=== PATIENT | male | born 1950 | race Caucasian/White ===

== ENCOUNTER 2022-01-13 16:00 | Inpatient (IN) ==
--- NOTE | 2022-01-13 16:14 | ED Triage Note ---
Date of Service January 13, 2022 History of Present Illness This patient was briefly evaluated while in triage. An abbreviated physical exam was performed. This patient is a 71-year-old Male with past medical history of dyspnea on exertion, dyslipidemia, HTN, cardiomyopathy who presents to the ED for key luation of Left foot wound. Pt. states "I had a sore on it. It started out as a blister. It broke and got all puffy and red and there's pus coming out. It's just leaking all over the place." Generalized fatigue and SOB. Does follow with podiatry. Was at [facility] today and referred to ED. Physical Exam VITALS: Vitals are noted on the nurse's note and reviewed by myself. GENERAL: This is a 71 year old white male, in no acute distress, nondiaphoretic, well-developed well-nourished. SKIN: No obvious rashes. Erythema radiating up LLE to proximal godfrey. HEAD: Normocephalic atraumatic. EYES: Conjunctivae without injection, sclerae without icterus. NECK: No JVD. LUNGS: No retractions or accessory muscle use. MUSCULOSKELETAL: Pt. presents in a wheelchair. Left foot in post-op shoe. NEURO: Patient was alert and oriented to person place and time. No focal neurological deficits. Initial orders for labs and / or imaging were placed and patient was placed in the waiting area until a bed is available. Please see further documentation for the full ED course. MDM / Impression Impression Impression: Type 2 diabetes mellitus with left diabetic foot infection, Hypertension, Acute renal insufficiency
--- NOTE | 2022-01-13 17:14 | XRay Report ---
XR chest 1V portable CLINICAL HISTORY: Sob TECHNIQUE: Single frontal radiograph of the chest was obtained. Comparison: Comparison is made to chest radiograph 12/27/2020 FINDINGS: Median sternotomy wires are unchanged. Dual-lead pacemaker is seen. Cardiomegaly is noted. Prominence and cephalization of the vasculature is seen. No evidence of pleural effusion or pneumothorax. IMPRESSION: Mild pulmonary edema. ACT 112: Negative or not required by law. Electronically signed by: Justice Weir M.D. 01/13/2022 5:13 PM
[2022-01-13] MEDS ORDERED: PIPERACILLIN/TAZOBACTAM 4.5 GM/120 ML BAG IV ONE (17:49)
--- NOTE | 2022-01-13 18:16 | Emergency Department Note ---
Impression & Plan Type 2 diabetes mellitus with left diabetic foot infection, Hypertension, Acute renal insufficiency ED Provider Note Provider: Iftikhar Esteban MD DATE OF SERVICE: 01/13/2022 CHIEF COMPLAINT: left foot infection HISTORY OF PRESENT ILLNESS: Patient is a 71-year-old gentleman with a history of gout, diabetes, hypertension, and CAD presenting here today [facility] who [facility] his primary care doctor. Evidently according to him and his for the last 3 weeks he has had a wound on his left foot just above his left big toe. States it started as a bit of irritation and a blister that then popped and pus has been oozing from it. There is been increasing redness of the foot and lower leg. Patient states has had some chills and fevers at times with feeling more fatigued. Patient denies a history of diabetic foot infections. Has not been on antibiotics. Has been trying to wash it some. finally convinced him to seek medical care today and again the outpatient doctors office referred him here for it. REVIEW OF SYSTEMS: A total of 10 review of systems was obtained and negative except as stated above in the HPI. PAST MEDICAL HISTORY: As noted above MEDICATIONS: Reviewed home medications SOCIAL HISTORY: Does not smoke currently, lives at home with PHYSICAL EXAM: GENERAL: alert and oriented in no acute distress on stretcher Head: normocephalic and atraumatic EYES: No injection, discharge or icterus. NECK: Trachea midline. ENT: Mucous membranes pink and moist. LUNGS: Airway patent. No retractions. Breath sounds clear with good air entry bilaterally. HEART: Regular rate and rhythm. No chest wall tenderness ABDOMEN: Soft and non-tender, without guarding or rebound. SKIN: Acyanotic, warm, dry except as noted below EXTREMITIES: Without swelling, tenderness or deformity except for warmth and some swelling 2+ of the left lower extremity below the knee towards the left foot. There is evidence of approximately centimeter wound with some slight purulence overlying the left great MTP joint. No crepitus. NEUROLOGICAL: No focal deficits. No aphasia. No facial droop or slurred speech. Sensation to gross touch normal. EK bpm sinus rhythm with sinus arrhythmia and occasional PVC. No acute ST segment elevation with diffuse and lateral T wave inversions a QTC of 497. Right bundle branch block is notable. CONTINUOUS CARDIAC MONITORING: was ordered and showed a heart rate of 80s-90s bpm in sinus rhythm with occasional PVCs and sinus arrhythmia Patient's laboratory studies and imaging reviewed. Differential includes Cellulitis, abscess, MRSA infection, DVT, necrotizing fasciitis, dermatitis, drug eruption, allergic reaction, as well as other pathologies. IMPRESSION/MEDICAL DECISION MAKING: Patient diabetic with some blistering and wound of his left foot that he is not seeking care for until today. Not significant tachycardic or febrile here but reports a fever and chills at home. Cleaning the wound of the left foot express more than 5 mL of purulent material, this was sent for culture. Did clean with saline and chlorhexidine. Will cover with broad-spectrum Zosyn at this time. Cultures obtained. Ultrasound actually DVT of the left lower extremity obtained as well as x-ray here. Question if he could be experiencing a deeper bone infection. Does not appear to be having nec fasc at this point. Does not appear septic at this point. Blood work without leukocytosis. ESR and CRP are both elevated. Lactate is not elevated. Creatinine of 1.7 unsure of his exact baseline recently but has in the past been between 1.2 and 1.5. Want to be careful given some possible pulmonary edema findings as chest x-ray about aggressive IV hydration at this point. X-ray questions per radiology report of the left foot gouty versus osteomyelitis picture. US LLE w/o signs of DVT per radiology. The significant infection of the left foor here is concerning for possible occult osteomyelitis. Received Zosyn at this time and in discussion with pharmacy daptomycin ordered for MRSA coverage. Discussed with the hospitalist for further care here at the hospital. DIAGNOSIS: Diabetic left foot infection, renal insufficiency DISPOSITION: Hospitalist will evaluate Patient was agreeable with this plan. Past Med/Surg History Medical History (Updated 01/13/22 @ 19:35 by Iftikhar Esteban M.D.) Aortic stenosis Cardiomyopathy Dyslipidemia Hypertension Type 2 diabetes mellitus Surgical History (Updated 05/29/19 @ 13:58 by Jacinta Huerta) History of ear surgery Transtympanic injections for sudden hearing loss Family History (Updated 05/29/19 @ 13:52 by Jacinta Huerta) Other No family history of adverse response to anesthesia No family history of bleeding disorder Social History (Updated 05/29/19 @ 13:52 by Jacinta Huerta) Smoking Status: Never smoker Second Hand Exposure: No; Hx Alcohol Use: Yes Alcohol type: beer Alcohol Intake Frequency Comment: 2 six-packs per week Hx Substance Use: No Preferred Language: [place]ian Communication Ability: Effective Clinical Science Liaison Required: No Beliefs That Will Affect Care: None Current Living Situation: Spouse current occupational status: retired Feels Safe at Home: Yes Assistive Devices: Denture - Upper, Denture - Lower, Glasses and Hearing Aid - Bilateral Allergies Allergies Allergy/AdvReac Type Severity Reaction Status Date / Time No Known Drug Allergies Allergy Verified 12/27/20 12:10 Home Meds Home Medications Medication Instructions Recorded Confirmed atenolol 25 mg tablet 25 mg PO DAILY 05/29/19 01/02/21 atorvastatin 80 mg tablet 80 mg PO DAILY 05/29/19 01/02/21 glipizide 10 mg tablet 10 mg PO BID 05/29/19 01/02/21 allopurinol 100 mg tablet 100 mg PO DAILY 12/27/20 01/02/21 alogliptin 12.5 mg tablet 12.5 mg PO DAILY 12/27/20 01/02/21 aspirin 81 mg tablet 81 mg PO DAILY 12/27/20 01/02/21 carboxymethylcellulose sodium See Rx Instructions ophthalmic 12/27/20 01/02/21 [Artificial Tears ([facility])] (eye) .COMPLEX cholecalciferol (vitamin D3) 25 25 mcg PO BID 12/27/20 01/02/21 mcg (1,000 unit) tablet metformin 500 mg tablet 1,000 mg PO DAILY 12/27/20 01/02/21 Results & Data (ED) Vital Signs Vital Signs - 24 hr 01/13/22 16:12 01/13/22 19:09 01/13/22 19:12 Temperature 36.8 C Temperature Source Oral Pulse Rate 94 H Pulse Rate [Finger] 76 Respiratory Rate 20 18 Respiratory Effort / Characteristics Non-Labored Spontaneous Respiratory Depth Normal Normal Respiratory Pattern Regular Blood Pressure 128/68 Blood Pressure [Right Arm] 155/96 H Blood Pressure Mean 88 Blood Pressure Mean [Right Arm] 115 Blood Pressure Position Sitting Pulse Oximetry 92 93 93 Oxygen Delivery Method Room Air Room Air Sepsis Recent Fever Within 48 Hours Yes Sepsis New/Unexplained Change in Mental Status No Sepsis Action Taken by Nursing No Action Required Laboratory Data Result diagrams: 01/13/22 17:55 01/13/22 17:55 Lab Results 01/13/22 01/13/2222 Range/Units 17:15 17:55 17:55 WBC 9.24 (4.8-10.8) K/ul RBC 4.00 L (4.63-6.08) M/uL Hgb 11.4 L (14.0-18.0) g/dl Hct 35.8 L (40.1-51.0) % MCV 89.5 (80.0-100.0) fL MCH 28.5 (25.0-34.0) pg MCHC 31.8 L (32.0-36.0) g/dL RDW Std Deviation 45.1 (36.4-46.3) fL RDW Coeff of Daphne 13.8 (11.5-14.5) % Plt Count 182 (130-400) K/uL MPV 10.6 (9.4-12.4) fL Immature Gran % (Auto) 1.0 % Neut % (Auto) 77.3 % Lymph % (Auto) 7.9 % [place] % (Auto) 12.2 % Eos % (Auto) 1.1 % Baso % (Auto) 0.5 % Neut # (Auto) 7.14 H (1.4-6.5) K/uL Lymph # (Auto) 0.73 L (1.2-3.4) K/uL [place] # (Auto) 1.13 H (0.24-0.82) K/uL Eos # (Auto) 0.10 (0-0.50) K/uL Baso # (Auto) 0.05 (0-0.2) K/uL Immature Gran # (Auto) 0.09 H (0.00-0.02) K/uL ESR 81 H (0-20) mm/hr PT (9.0-12.0) Seconds INR (0.9-1.1) APTT (21.0-31.0) Seconds PTT Ratio Sodium (136-145) mmol/L Potassium (3.5-5.1) mmol/L Chloride (98-107) mmol/L Carbon Dioxide (21-32) mmol/L Anion Gap (3-11) BUN (6-23) mg/dl Creatinine (0.6-1.4) mg/dl Est Cr Clr Drug Dosing ml/min Est GFR ( Amer) ml/min Est GFR (Non-Af Amer) ml/min BUN/Creatinine Ratio (10-20) Glucose (70-99(Fasting)) mg/dl Lactate (0.4-2.0) mmol/L Calcium (8.5-10.1) mg/dl Magnesium (1.7-2.4) mg/dl Total Bilirubin (0.2-1.0) mg/dl AST (13-39) U/L ALT (7-52) U/L Alkaline Phosphatase (34-104) U/L Troponin I High Sens (0-20) pg/ml C-Reactive Protein (0-0.5) mg/dl B-Natriuretic Peptide (0-100) pg/ml Total Protein (6.0-8.3) gm/dl Albumin (3.4-5.0) gm/dl Globulin (2.5-4.0) gm/dl Albumin/Globulin Ratio (0.9-2) Procalcitonin (0-0.5) ng/ml SARS-CoV-2 (PCR) NEGATIVE (Negative) 01/13/22 01/13/22 01/13/22 Range/Units 17:55 17:55 17:55 WBC (4.8-10.8) K/ul RBC (4.63-6.08) M/uL Hgb (14.0-18.0) g/dl Hct (40.1-51.0) % MCV (80.0-100.0) fL MCH (25.0-34.0) pg MCHC (32.0-36.0) g/dL RDW Std Deviation (36.4-46.3) fL RDW Coeff of Daphne (11.5-14.5) % Plt Count (130-400) K/uL MPV (9.4-12.4) fL Immature Gran % (Auto) % Neut % (Auto) % Lymph % (Auto) % [place] % (Auto) % Eos % (Auto) % Baso % (Auto) % Neut # (Auto) (1.4-6.5) K/uL Lymph # (Auto) (1.2-3.4) K/uL [place] # (Auto) (0.24-0.82) K/uL Eos # (Auto) (0-0.50) K/uL Baso # (Auto) (0-0.2) K/uL Immature Gran # (Auto) (0.00-0.02) K/uL ESR (0-20) mm/hr PT 11.1 (9.0-12.0) Seconds INR 1.0 (0.9-1.1) APTT 27.1 (21.0-31.0) Seconds PTT Ratio 1.0 Sodium 134 L (136-145) mmol/L Potassium 4.3 (3.5-5.1) mmol/L Chloride 98 (98-107) mmol/L Carbon Dioxide 29 (21-32) mmol/L Anion Gap 7 (3-11) BUN 20 (6-23) mg/dl Creatinine 1.70 H (0.6-1.4) mg/dl Est Cr Clr Drug Dosing 41.9 ml/min Est GFR ( Amer) 45.4 ml/min Est GFR (Non-Af Amer) 39.1 ml/min BUN/Creatinine Ratio 11.8 (10-20) Glucose 74 (70-99(Fasting)) mg/dl Lactate (0.4-2.0) mmol/L Calcium 8.8 (8.5-10.1) mg/dl Magnesium 1.9 (1.7-2.4) mg/dl Total Bilirubin 1.5 H (0.2-1.0) mg/dl AST 29 (13-39) U/L ALT 23 (7-52) U/L Alkaline Phosphatase 309 H (34-104) U/L Troponin I High Sens 29.6 H (0-20) pg/ml C-Reactive Protein 15.96 H (0-0.5) mg/dl B-Natriuretic Peptide (0-100) pg/ml Total Protein 6.8 (6.0-8.3) gm/dl Albumin 3.4 (3.4-5.0) gm/dl Globulin 3.4 (2.5-4.0) gm/dl Albumin/Globulin Ratio 1.0 (0.9-2) Procalcitonin 0.93 H (0-0.5) ng/ml SARS-CoV-2 (PCR) (Negative) 01/13/22 01/13/22 Range/Units 17:55 18:41 WBC (4.8-10.8) K/ul RBC (4.63-6.08) M/uL Hgb (14.0-18.0) g/dl Hct (40.1-51.0) % MCV (80.0-100.0) fL MCH (25.0-34.0) pg MCHC (32.0-36.0) g/dL RDW Std Deviation (36.4-46.3) fL RDW Coeff of Daphne (11.5-14.5) % Plt Count (130-400) K/uL MPV (9.4-12.4) fL Immature Gran % (Auto) % Neut % (Auto) % Lymph % (Auto) % [place] % (Auto) % Eos % (Auto) % Baso % (Auto) % Neut # (Auto) (1.4-6.5) K/uL Lymph # (Auto) (1.2-3.4) K/uL [place] # (Auto) (0.24-0.82) K/uL Eos # (Auto) (0-0.50) K/uL Baso # (Auto) (0-0.2) K/uL Immature Gran # (Auto) (0.00-0.02) K/uL ESR (0-20) mm/hr PT (9.0-12.0) Seconds INR (0.9-1.1) APTT (21.0-31.0) Seconds PTT Ratio Sodium (136-145) mmol/L Potassium (3.5-5.1) mmol/L Chloride (98-107) mmol/L Carbon Dioxide (21-32) mmol/L Anion Gap (3-11) BUN (6-23) mg/dl Creatinine (0.6-1.4) mg/dl Est Cr Clr Drug Dosing ml/min Est GFR ( Amer) ml/min Est GFR (Non-Af Amer) ml/min BUN/Creatinine Ratio (10-20) Glucose (70-99(Fasting)) mg/dl Lactate 0.7 (0.4-2.0) mmol/L Calcium (8.5-10.1) mg/dl Magnesium (1.7-2.4) mg/dl Total Bilirubin (0.2-1.0) mg/dl AST (13-39) U/L ALT (7-52) U/L Alkaline Phosphatase (34-104) U/L Troponin I High Sens (0-20) pg/ml C-Reactive Protein (0-0.5) mg/dl B-Natriuretic Peptide 909 H (0-100) pg/ml Total Protein (6.0-8.3) gm/dl Albumin (3.4-5.0) gm/dl Globulin (2.5-4.0) gm/dl Albumin/Globulin Ratio (0.9-2) Procalcitonin (0-0.5) ng/ml SARS-CoV-2 (PCR) (Negative) Administered Medications Discontinued Medications Piperacillin Sod/Tazobactam Sod (Zosyn) 4.5 gm in 120 mls @ 240 mls/hr IV NOW ONE Stop: 01/13/22 18:18 Last Admin: 01/13/22 19:03 Dose: 240 mls/hr Documented By: Imaging Data Radiologist's Impression: Chest X-Ray 01/13/22 16:14 XR chest 1V portable CLINICAL HISTORY: Sob TECHNIQUE: Single frontal radiograph of the chest was obtained. Comparison: Comparison is made to chest radiograph 12/27/2020 FINDINGS: Median sternotomy wires are unchanged. Dual-lead pacemaker is seen. Cardiomegaly is noted. Prominence and cephalization of the vasculature is seen. No evidence of pleural effusion or pneumothorax. IMPRESSION: Mild pulmonary edema. ACT 112: Negative or not required by law. Electronically signed by: Justice Weir M.D. 01/13/2022 5:13 PM Venous Doppler Study 01/13/22 16:14 LEFT LOWER EXTREMITY VENOUS DOPPLER CLINICAL HISTORY: Pain, redness, swelling COMPARISON STUDY: No previous studies for comparison. TECHNIQUE: Sonography of the deep venous system of the left lower extremity was performed. Compression and augmentation were evaluated. FINDINGS: The left common femoral, superficial femoral and popliteal veins were compressible. Augmentation was normal. Flow was shown within the deep calf vessels. IMPRESSION: No evidence of deep venous thrombus within the left lower extremity. ACT 112: Negative or not required by law. Electronically signed by: Dao Amador M.D. 01/13/2022 7:12 PM Foot X-Ray 01/13/22 17:27 XR foot LT min 3V routine CLINICAL HISTORY: Left foot infection. COMPARISON: None FINDINGS: This exam was technically difficult to obtain. No acute fracture is identified. Note is made of soft tissue swelling along the medial aspect of the left first metatarsophalangeal joint. This may contain small calcific densities. There is possible erosion of the medial aspect of the left first metatarsal head. Tarsometatarsal joints are intact. Posterior and plantar calcaneal spurring are present. There is dorsal subcutaneous edema of the left foot. 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 IMPRESSION: 1. Soft tissue swelling along the medial aspect of the left first metatarsophalangeal joint which may contain small calcific densities. Possible erosion of the medial aspect of the left first metatarsal head. These findings are nonspecific and could reflect gout however an infectious process with osteom yelitis cannot be completely excluded. 2. No acute fracture within the left foot. ACT 112: Negative or not required by law. Electronically signed by: Dao Amador M.D. 01/13/2022 6:46 PM Discharge Plan Visit Data Chief Complaint: Foot Injury/Pain Stated Complaint: DIABETIC, SORE ON FOOT, RED UP TO KNEE ED Provider: Iftikhar Esteban Discharge Problem: Type 2 diabetes mellitus with left diabetic foot infection, Hypertension, Acute renal insufficiency Patient Disposition: Being Evaluated by Hospitalist Forms Stand Alone Forms: [facility] [employer] Prescriptions Prescriptions: No Action atenolol 25 mg tablet 25 mg PO DAILY atorvastatin 80 mg tablet 80 mg PO DAILY glipizide 10 mg tablet 10 mg PO BID metformin 500 mg tablet 1,000 mg PO DAILY cholecalciferol (vitamin D3) 25 mcg (1,000 unit) tablet 25 mcg PO BID aspirin 81 mg tablet 81 mg PO DAILY carboxymethylcellulose sodium [Artificial Tears ([facility])] See Rx Instructions ophthalmic (eye) .COMPLEX Rx Instructions: ophthalmic (eye) 1 drop in both eyes alogliptin 12.5 mg tablet 12.5 mg PO DAILY allopurinol 100 mg tablet 100 mg PO DAILY Referrals Referrals: Tomasa Harrison PA-C [Primary Care Provider] -
[2022-01-13 18:27] LABS: Basophils # (auto) 0.05 K/uL (0-0.2); Basophils % (auto) 0.5 %; Eosinophils % (auto) 1.1 %; Hematocrit (blood only) 35.8 % (40.1-51.0); Hemoglobin 11.4 g/dl (14.0-18.0); Immature Granulocytes # (auto) 0.09 K/uL (0.00-0.02); Lymphocytes # (auto) 0.73 K/uL (1.2-3.4); Lymphocytes % (auto) 7.9 %; Mean Corpuscular Hemoglobin 28.5 pg (25.0-34.0); Mean Corpuscular Hgb Conc 31.8 g/dL (32.0-36.0); Mean Corpuscular Volume 89.5 fL (80.0-100.0); Mean Platelet Volume 10.6 fL (9.4-12.4); Monocytes # (auto) 1.13 K/uL (0.24-0.82); Monocytes % (auto) 12.2 %; Neutrophils # (auto) 7.14 K/uL (1.4-6.5); Neutrophils % (auto) 77.3 %; Platelet Count 182 K/uL (130-400); RDW Coefficient of Variation 13.8 % (11.5-14.5); RDW Standard Deviation 45.1 fL (36.4-46.3); White Blood Count 9.24 K/ul (4.8-10.8)
[2022-01-13 18:39] LABS: Partial Thromboplastin Time 27.1 Seconds (21.0-31.0); Prothrombin Time 11.1 Seconds (9.0-12.0)
--- NOTE | 2022-01-13 18:48 | XRay Report ---
XR foot LT min 3V routine CLINICAL HISTORY: Left foot infection. COMPARISON: None FINDINGS: This exam was technically difficult to obtain. No acute fracture is identified. Note is ma de of soft tissue swelling along the medial aspect of the left first metatarsophalangeal joint. This may contain small calcific densities. There is possible erosion of the medial aspect of the left firs t metatarsal head. Tarsometatarsal joints are intact. Posterior and plantar calcaneal spurring are pr esent. There is dorsal subcutaneous edema of the left foot. 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 IMPRESSION: 1. Soft tissue swelling along the medial aspect of the left first metatarsophalangeal joint which may contain small calcific densities. Possible erosion of the medial aspect of the left first metatarsal head. These findings are nonspecific and could reflect gout however an infectious process with osteo myelitis cannot be completely excluded. 2. No acute fracture within the left foot. ACT 112: Negative or not required by law. Electronically signed by: Dao Amador M.D. 01/13/2022 6:46 PM
[2022-01-13 18:52] LABS: Albumin Level 3.4 gm/dl (3.4-5.0); BUN Creatinine Ratio 11.8 (10-20); Bilirubin,Total 1.5 mg/dl (0.2-1.0); C Reactive Protein 15.96 mg/dl (0-0.5); Calcium 8.8 mg/dl (8.5-10.1); Creatinine Clr Calc Pharmacy 41.9 ml/min; Est GFR (African American) 45.4 ml/min; Est GFR (Non-African American) 39.1 ml/min; Globulin 3.4 gm/dl (2.5-4.0); Magnesium 1.9 mg/dl (1.7-2.4); Potassium 4.3 mmol/L (3.5-5.1); Total Protein 6.8 gm/dl (6.0-8.3); Troponin I High Sensitivity 29.6 pg/ml (0-20)
--- NOTE | 2022-01-13 19:14 | Ultrasound Report ---
LEFT LOWER EXTREMITY VENOUS DOPPLER CLINICAL HISTORY: Pain, redness, swelling COMPARISON STUDY: No previous studies for comparison. TECHNIQUE: Sonography of the deep venous system of the left lower extremity was performed. Compressi on and augmentation were evaluated. FINDINGS: The left common femoral, superficial femoral and popliteal veins were compressible. Augmen tation was normal. Flow was shown within the deep calf vessels. IMPRESSION: No evidence of deep venous thrombus within the left lower extremity. ACT 112: Negative or not required by law. Electronically signed by: Dao Amador M.D. 01/13/2022 7:12 PM
[2022-01-13] MEDS: DAPTOmycin 450 MG in SYRINGE 0 ML IV SCH (20:00)
--- NOTE | 2022-01-13 21:14 | History & Physical Report ---
Date of Service January 13, 2022 Assessment & Plan (1) Left foot infection: Plan: 71 yo male with PMHx DM2 insulin dependent, CKD, CAD s/p CABG and pacemaker, aortic valve replacement, HTN, HLD, Gout, B12 deficiency, hard of hearing, obesity presented with an wound on L foot near base of big toe. Left foot wound Cellulitis left lower extremity -3-4 week L foot wound near dorsal base of 1st metatarsal with purulent drainage. Extending erythema and tenderness to left godfrey. Likely secondary to DM2 and trauma to toe from new shoes. -zosyn and dapto x1 given in ED, cont. both for broad coverage -WBC wnl -ESR, CRP, procal elevated, trend -blood, wound cx pending -Venous doppler neg for DVT -L foot XR: soft tissue swelling with possible erosion medial aspect first metatarsal. Findings could reflect gout versus osteomyelitis. -MRSA swab pending -started on low maintenance NSS -wound care consulted -consider ortho consult -consider MRI vs 3 phase bone scan since pt has pacemaker in place; consider cardio consult for pacemaker interrogation HFrEF Cardiomyopathy CAD s/p CABG s/p aortic valve replacement Pacemaker in place HTN -[facility] with [facility], last seen a few months ago; poor diet at home, not on diuretic -EKG: RBBB, T wave abnormality in lateral leads, sinus rhythm with PVCs; findings appear similar to last year -CXR: pulm edema -BNP 900s -initial troponin 28, cont. to trend -cont. home metoprolol, statin, aspirin -lipids pending -consider optimizing regimen with YANELIS/ARB -echo ordered, want to r/o endocarditis with history of AVR -consider cardio consult -placed on telemetry Acute on chronic renal insufficiency, CKD stage 3a -Cr 1.7, baseline unknown but last year ~1.2; appears euvolemic on exam -trend Cr for now, started on low maintenance IVF DM2 -hold home meds -glycemic consult in placed, likely needs basal/bolus regimen Gout -cont. home allopurinol, folate -uric acid pending HLD -cont. home statin DVT ppx: lovenox FEN/GI: HH, DM2, NSS 40ml/hr Code Status: full Dispo: PCU tele (2) Type 2 diabetes mellitus: (3) Cardiomyopathy: (4) Hypertension: (5) Dyslipidemia: (6) Aortic stenosis: (7) Profound sensorineural hearing loss (SNHL): (8) Gout: (9) Dyspnea on exertion: (10) Acute on chronic renal insufficiency: (11) CHF (congestive heart failure): History of Present Illness Chief Complaint: Left foot ulcer Primary Care Provider: Tomasa Harrison PA-C 71 yo male with PMHx DM2 insulin dependent, CKD, CAD s/p CABG and pacemaker, aortic valve replacement, HTN, HLD, Gout, B12 deficiency, hard of hearing, obesity presented with an wound on L foot near base of big toe. The wound first appeared 3 to 4 weeks ago soon after getting new shoes. Initially had pain and erythema around the wound site which progressively got worse. The redness spread to his left lower extremity and also started developing pus from the wound. With the help of his he tried managing the wound at home without success. Was not on any antibiotics prior to his ED visit today. Over the last few days he has also been experiencing some fevers and chills. Has also been experiencing some shortness of breath however unsure if related as he does have a history of CHF. Denies chest pain, abdominal pain, nausea, vomiting, dizziness, heart palpitations, constipation, diarrhea. He states he is compliant with his home meds and insulin regimen. Patient also has a longstanding heart history as stated above and follows with the [facility]. He was last seen by his strength and conditioning coach earlier this spring and states his heart was doing well. His cardiology team monitors his pacemaker and did call him today about scheduling an appointment for follow-up due to an unknown finding on interrogation. He typically drinks 3-4 beers a night but denies alcohol use over the last few weeks ever since his foot wound. He has a poor diet at home and does acknowledge using a decent amount of table s alt on his foods. Not on his home diuretics. Allergies Allergy/AdvReac Type Severity Reaction Status Date / Time No Known Drug Allergies Allergy Verified 12/27/20 12:10 Home Medications Medication Instructions Recorded Confirmed Type allopurinol 100 mg tablet 100 mg PO DAILY 12/27/20 01/13/22 History cholecalciferol (vitamin D3) 25 50 mcg PO DAILY 12/27/20 01/13/22 History mcg (1,000 unit) tablet aspirin 81 mg tablet,delayed 81 mg PO DAILY 01/13/22 01/13/22 History release cyanocobalamin (vitamin B-12) 500 500 mcg PO DAILY 01/13/22 01/13/22 History mcg tablet folic acid 1 mg tablet 1 mg PO DAILY 01/13/22 01/13/22 History insulin aspart U-100 100 unit/mL 8 unit subcut AC 01/13/22 01/14/22 History (3 mL) subcutaneous pen (Novolog Flexpen U-100 Insulin aspart) insulin glargine 100 unit/mL (3 See Rx Instructions .Route .COMPLEX 01/13/22 01/13/22 History mL) subcutaneous pen metoprolol succinate 50 mg 50 mg PO DAILY 01/13/22 01/13/22 History tablet,extended release 24 hr triamcinolone acetonide 0.025 % 1 applic topical DAILY 01/13/22 01/13/22 History topical cream vit C 250 mg-vit E 90 mg-zinc 40 1 tab PO BID 01/13/22 01/13/22 History mg-copper 1 [id number]-srmfaw capsule (PreserVision AREDS-2) Past Med/Surg History Medical History (Updated 01/13/22 @ 21:01 by Dillan Mcgee DO) Acute renal insufficiency Aortic stenosis Cardiomyopathy Diabetes Dyslipidemia Hypertension Type 2 diabetes mellitus Surgical History (Updated 05/29/19 @ 13:58 by Jacinta Huerta) History of ear surgery Transtympanic injections for sudden hearing loss Family History (Updated 05/29/19 @ 13:52 by Jacinta Huerta) Other No family history of adverse response to anesthesia No family history of bleeding disorder Social History (Updated 05/29/19 @ 13:52 by Jacinta Huerta) Smoking Status: Never smoker Second Hand Exposure: No; Do You Dip or Chew Tobacco: No; Hx Alcohol Use: Yes Alcohol type: beer Alcohol Intake Frequency Comment: 2 six- packs per week Hx Substance Use: No Preferred Language: [place]an Communication Ability: Effective Quality Rep Required: No Beliefs That Will Affect Care: None marital status: Current Living Situation: Spouse current occupational status: retired Other Information That Helps Us Care for You: No Feels Safe at Home: Yes Safety Concerns: Feels Safe At This Time Assistive Devices: None Review of Systems Review of Systems: All systems reviewed & are unremarkable except as noted in HPI & below Physical Exam Physical Exam: Constitutional: in no acute distress, pleasant, obese, intact memory. Vitals as above. Hard of hearing. HEENT: No scleral injection or discharge. Moist mucous membranes. Clear oropharynx without exudate. Hearing aids present. Neck: Supple without lymphadenopathy or thyromegaly. Trachea midline. Lungs: Clear to auscultation bilaterally with good effort. No wheezing, rales, or rhonchi. Cardiac: RRR. No murmurs. No JVD. 1+ peripheral pulses bilaterally. Abdomen: Bowel sounds present. Soft, nontender. Distended.No guarding or rebound tenderness. No hepatosplenomegaly. MSK: No cyanosis or clubbing. Extremities motor strength 5/5. Skin: 3+ pitting edema LE bilaterally, tender/warm/erythematous left LE extending to left foot, 2x1cm ulcer around distal 1st metatarsal with purulent drainage on dorsal aspect L foot Neurologic: No focal deficits. PERRL. Results & Data Results & Data ([facility]) Vital Signs (Past 12 Hours) Vital Signs Temp Pulse Pulse Resp BP BP Pulse Ox 01/13/22 20:38 75 20 129/72 94 01/13/22 19:12 93 01/13/22 19:09 76 18 155/96 H 93 01/13/22 16:12 36.8 C 94 H 20 128/68 92 O2 Del Method 01/13/22 20:38 01/13/22 19:12 Room Air 01/13/22 19:09 01/13/22 16:12 Room Air Laboratory Results Laboratory Results WBC 9.24 K/ul (4.8-10.8) 01/13/22 17:55 RBC 4.00 M/uL (4.63-6.08) L 01/13/22 17:55 Hgb 11.4 g/dl (14.0-18.0) L 01/13/22 17:55 Hct 35.8 % (40.1-51.0) L 01/13/22 17:55 MCV 89.5 fL (80.0-100.0) 01/13/22 17:55 MCH 28.5 pg (25.0-34.0) 01/13/22 17:55 MCHC 31.8 g/dL (32.0-36.0) L 01/13/22 17:55 RDW Std Deviation 45.1 fL (36.4-46.3) 01/13/22 17: RDW Coeff of Daphne 13.8 % (11.5-14.5) 01/13/22 17: Plt Count 182 K/uL (130-400) 01/13/22 17:55 MPV 10.6 fL (9.4-12.4) 01/13/22 17: Immature Gran % (Auto) 1.0 % 01/13/22 17: Neut % (Auto) 77.3 % 01/13/22 17:55 Lymph % (Auto) 7.9 % 01/13/22 17:55 [place] % (Auto) 12.2 % 01/13/22 17: Eos % (Auto) 1.1 % 01/13/22 17: Baso % (Auto) 0.5 % 01/13/22 17: Neut # (Auto) 7.14 K/uL (1.4-6.5) H 01/13/22 17: Lymph # (Auto) 0.73 K/uL (1.2-3.4) L 01/13/22 17:55 [place] # (Auto) 1.13 K/uL (0.24-0.82) H 01/13/22 17: Eos # (Auto) 0.10 K/uL (0-0.50) 01/13/22 17: Baso # (Auto) 0.05 K/uL (0-0.2) 01/13/22 17: Immature Gran # (Auto) 0.09 K/uL (0.00-0.02) H 01/13/22 17:55 ESR 81 mm/hr (0-20) H 01/13/22 17:55 PT 11.1 Seconds (9.0-12.0) 01/13/22 17: INR 1.0 (0.9-1.1) 01/13/22 17: APTT 27.1 Seconds (21.0-31.0) 01/13/22 17: PTT Ratio 1.0 01/13/22 17: Sodium 134 mmol/L (136-145) L 01/13/22 17: Potassium 4.3 mmol/L (3.5-5.1) 01/13/22 17:55 Chloride 98 mmol/L (98-107) 01/13/22 17:55 Carbon Dioxide 29 mmol/L (21-32) 01/13/22 17:55 Anion Gap 7 (3-11) 01/13/22 17:55 BUN 20 mg/dl (6-23) 01/13/22 17:55 Creatinine 1.70 mg/dl (0.6-1.4) H 01/13/22 17:55 Est Cr Clr Drug Dosing 41.9 ml/min 01/13/22 17:55 Est GFR ( Amer) 45.4 ml/min 01/13/22 17:55 Est GFR (Non-Af Amer) 39.1 ml/min 01/13/22 17:55 BUN/Creatinine Ratio 11.8 (10-20) 01/13/22 17:55 Glucose 74 mg/dl (70-99(Fasting)) 01/13/22 17:55 Lactate 0.7 mmol/L (0.4-2.0) 01/13/22 17:55 Calcium 8.8 mg/dl (8.5-10.1) 01/13/22 17:55 Magnesium 1.9 mg/dl (1.7-2.4) 01/13/22 17:55 Total Bilirubin 1.5 mg/dl (0.2-1.0) H 01/13/22 17:55 AST 29 U/L (13-39) 01/13/22 17:55 ALT 23 U/L (7-52) 01/13/22 17:55 Alkaline Phosphatase 309 U/L (34-104) H 01/13/22 17:55 Troponin I High Sens 29.6 pg/ml (0-20) H 01/13/22 17:55 C-Reactive Protein 15.96 mg/dl (0-0.5) H 01/13/22 17:55 B-Natriuretic Peptide 909 pg/ml (0-100) H 01/13/22 18:41 Total Protein 6.8 gm/dl (6.0-8.3) 01/13/22 17:55 Albumin 3.4 gm/dl (3.4-5.0) 01/13/22 17:55 Globulin 3.4 gm/dl (2.5-4.0) 01/13/22 17:55 Albumin/Globulin Ratio 1.0 (0.9-2) 01/13/22 17:55 Procalcitonin 0.93 ng/ml (0-0.5) H 01/13/22 17:55 SARS-CoV-2 (PCR) NEGATIVE (Negative) 01/13/22 17:15 Impressions Chest X-Ray 01/13/22 16:14 XR chest 1V portable CLINICAL HISTORY: Sob TECHNIQUE: Single frontal radiograph of the chest was obtained. Comparison: Comparison is made to chest radiograph 12/27/2020 FINDINGS: Median sternotomy wires are unchanged. Dual-lead pacemaker is seen. Cardiomegaly is noted. Prominence and cephalization of the vasculature is seen. No evidence of pleural effusion or pneumothorax. IMPRESSION: Mild pulmonary edema. ACT 112: Negative or not required by law. Electronically signed by: Justice Weir M.D. 01/13/2022 5:13 PM Venous Doppler Study 01/13/22 16:14 LEFT LOWER EXTREMITY VENOUS DOPPLER CLINICAL HISTORY: Pain, redness, swelling COMPARISON STUDY: No previous studies for comparison. TECHNIQUE: Sonography of the deep venous system of the left lower extremity was performed. Compression and augmentation were evaluated. FINDINGS: The left common femoral, superficial femoral and popliteal veins were compressible. Augmentation was normal. Flow was shown within the deep calf vessels. IMPRESSION: No evidence of deep venous thrombus within the left lower extremity. ACT 112: Negative or not required by law. Electronically signed by: Dao Amador M.D. 01/13/2022 7:12 PM Foot X-Ray 01/13/22 17:27 XR foot LT min 3V routine CLINICAL HISTORY: Left foot infection. COMPARISON: None FINDINGS: This exam was technically difficult to obtain. No acute fracture is identified. Note is made of soft tissue swelling along the medial aspect of the left first metatarsophalangeal joint. This may contain small calcific densities. There is possible erosion of the medial aspect of the left first metatarsal head. Tarsometatarsal joints are intact. Posterior and plantar calcaneal spurring are present. There is dorsal subcutaneous edema of the left foot. 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 IMPRESSION: 1. Soft tissue swelling along the medial aspect of the left first metatarsophalangeal joint which may contain small calcific densities. Possible erosion of the medial aspect of the left first metatarsal head. These findings are nonspecific and could reflect gout however an infectious process with osteomyelitis cannot be completely excluded. 2. No acute fracture within the left foot. ACT 112: Negative or not required by law. Electronically signed by: Dao Amador M.D. 01/13/2022 6:46 PM Supervising Physician Co-Signing Physician Notes Attending addendum: I have physically seen this patient, have supervised the medical residents activities, and agree with the H&P unless as otherwise noted. Assessment and Plan: Left foot diabetic infection- Differential as noted on CT gout versus osteomyelitis- Continue daptomycin IV and Zosyn IV begun in ED Follow blood and wound cultures Consult wound care Further imaging MRI versus three-phase bone scan Consult orthopedic surgery HFrEF/cardiomyopathy/CAD/status post CABG/status post aortic valve replacement/status post pacer/hypertension- The patient will be admitted to telemetry for serial cardiac enzymes, serial EKG's, cardiac rhythm monitoring and a 2-D echocardiogram with Dopplers. Troponin mildly elevated 29.6, follow serially Last reported ejection fraction was 35-40% [facility] With a duration of infection of his left foot, will be concern regarding possibility of seeding his valve and/or pacer leads Consult cardiology Acute kidney injury on CKD stage III day- Creatinine 1.70, with base 1.24 Follow serially with gentle IV fluids Remaining orders and notations as noted Resident Activity Tracking Resident Involvement: Resident Care Provided Care Provided: Adult Hospital Medicine
[2022-01-13] MEDS ORDERED: PHARMACY GLYCEMIC MGMT CONSULT PRN (23:13)
[2022-01-13] MEDS ORDERED: SODIUM CHLORIDE 0.9% 1000ML 1,000 ML IV SCH (23:13)
[2022-01-13] MEDS ORDERED: ONDANSETRON INJ 2 MG/ML 2 ML VIAL IV PRN (23:13)
[2022-01-13] MEDS ORDERED: NITROGLYCERIN SL 0.4 MG/TAB TAB SL PRN (23:13)
[2022-01-13] MEDS ORDERED: ACETAMINOPHEN 325 MG TAB PO PRN (23:13)
[2022-01-14] MEDS: PIPERACILLIN/TAZOBACTAM 4.5 GM in DEXTROSE 5% 100 ML IV SCH ×4 (00:07→23:25)
[2022-01-14] MEDS: INSULIN ASPART PER UNIT SC SCH ×5 (02:41→21:22)
[2022-01-14 05:48] LABS: Appearance Urine Clear (Clear); Bacteria Urine Automated Negative (Negative); Bilirubin Urine Negative (Negative); Blood Urine Negative (Negative); Cast Urine Automated 0 /lpf (0-5); Color Urine Yellow; Epithelial Cell Urine Auto 0-5 /lpf (0-5); Glucose Urine UA Negative (Negative); Ketones Urine Trace (Negative); Leukocyte Esterase Urine Negative (Negative); Nitrite Urine Negative (Negative); Protein Urine 1+ (Negative); Urobilinogen Urine Negative (Negative); pH Urine 5.5 (4.5-7.5)
[2022-01-14 07:58] LABS: Basophils # (auto) 0.03 K/uL (0-0.2); Basophils % (auto) 0.4 %; Eosinophils # (auto) 0.09 K/uL (0-0.50); Eosinophils % (auto) 1.1 %; Hematocrit (blood only) 33.1 % (40.1-51.0); Hemoglobin 10.6 g/dl (14.0-18.0); Immature Granulocytes # (auto) 0.05 K/uL (0.00-0.02); Immature Granulocytes % (auto) 0.6 %; Lymphocytes # (auto) 0.61 K/uL (1.2-3.4); Lymphocytes % (auto) 7.7 %; Mean Corpuscular Hemoglobin 28.3 pg (25.0-34.0); Mean Corpuscular Volume 88.5 fL (80.0-100.0); Mean Platelet Volume 10.4 fL (9.4-12.4); Monocytes # (auto) 0.89 K/uL (0.24-0.82); Monocytes % (auto) 11.3 %; Neutrophils # (auto) 6.24 K/uL (1.4-6.5); Neutrophils % (auto) 78.9 %; Platelet Count 184 K/uL (130-400); RDW Coefficient of Variation 14.1 % (11.5-14.5); RDW Standard Deviation 45.4 fL (36.4-46.3); Red Blood Count 3.74 M/uL (4.63-6.08); White Blood Count 7.91 K/ul (4.8-10.8)
[2022-01-14 08:28] LABS: Albumin Globulin Ratio 0.9 (0.9-2); Albumin Level 2.9 gm/dl (3.4-5.0); BUN Creatinine Ratio 11.3 (10-20); Bilirubin,Total 1.4 mg/dl (0.2-1.0); C Reactive Protein 17.22 mg/dl (0-0.5); Calcium 8.4 mg/dl (8.5-10.1); Chol HDL Ratio 2.6 (0-5); Creatinine Clr Calc Pharmacy 47.7 ml/min; Est GFR (African American) 49.2 ml/min; Est GFR (Non-African American) 42.4 ml/min; Globulin 3.1 gm/dl (2.5-4.0); Potassium 4.5 mmol/L (3.5-5.1); Uric Acid 5.5 mg/dl (2.6-7.2)
[2022-01-14] MEDS ORDERED: PERFLUTREN LIPID MICROSPHERE (DEFINITY) IV ONE (08:33)
[2022-01-14 08:43] LABS: Estimated Average Glucose 163 mg/dl; Hemoglobin A1C 7.3 % (4.5-5.6)
[2022-01-14] MEDS ORDERED: LANTUS PER UNIT CHARGE SQ SCH (09:00)
[2022-01-14] MEDS: ENOXAPARIN INJ 30 MG/0.3 ML SYR SQ SCH (09:16)
[2022-01-14] MEDS: allopurinoL 100 MG TAB PO SCH (09:17)
[2022-01-14] MEDS: FOLIC ACID 1 MG TAB PO SCH (09:19)
[2022-01-14] MEDS: CHOLECALCIFEROL 1,000 UNITS 25 MCG TAB PO SCH (09:19)
[2022-01-14] MEDS: ASPIRIN 81 MG ECTAB PO SCH (09:19)
[2022-01-14] MEDS: METOPROLOL SUCC 50MG EXT REL TAB PO SCH (09:19)
[2022-01-14] MEDS: CYANOCOBALAMIN (B-12) 500 MCG TABLET PO SCH (09:19)
--- NOTE | 2022-01-14 11:15 | XCELERA ---
[id number]
--- NOTE | 2022-01-14 12:05 | Electrocardiogram Report ---
Test Reason : Blood Pressure : / mmHG Vent. Rate : 079 BPM Atrial Rate : 079 BPM P-R Int : 178 ms QRS Dur : 140 ms QT Int : 434 ms P-R-T Axes : 007 189 035 degrees QTc Int : 497 ms Poor data quality, interpretation may be adversely affected Sinus rhythm with occasional Premature ventricular complexes Question atrial paced beat Right bundle branch block T wave abnormality, consider lateral ischemia Abnormal ECG No previous ECGs available Confirmed by Azar Higgins ([id number]) on 01/14/2022 12:05:19 PM Referred By: REFERRED SELF Confirmed By:Azar Higgins
[2022-01-14] MEDS ORDERED: LANTUS PER UNIT CHARGE SQ ONE ×2 (12:45→21:00)
--- NOTE | 2022-01-14 15:25 | Hospitalist Progress Note ---
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 Arias, he will see tomorrow (01/15)-appreciate input - Obtain arterial EUGENIE of L foot to assess vascular status - ESR elevated, concerned for underlying osteomyelitis (2) Acute on chronic renal insufficiency: Plan: - Baseline dating back to 12/2020, appears ~ 1.5 - [employer] ADOMETRY 1.70 on 01/13, down to 1.59 this morning - Stop IVF (3) CHF (congestive heart failure): Plan: - Mild pulmonary edema noted on imaging with elevated BNP of 909 - Echo done this morning, LV function normal, EF 60-65%, mild LVH - Stop IVF - On room air, not currently short of breath - Monitor clinically - Continue Metoprolol Succinate and ASA (4) Type 2 diabetes mellitus: Plan: - Lantus 10u at HS and 20u daily with log 8u AC (home regimen) - pharmacy has been consulted for glycemic management - a1c 7.3% (5) Hypertension: Plan: - BP well controlled, continue Toprol XL (6) Dyslipidemia: Plan: - Does not take any statins according to home med list Plan As above. Continue empiric IV antibiotics and local wound care for now and await general surgery eval as I anticipate need for I&D. Will tailor abx as culture data becomes available. Follow up labs ordered for tomorrow. Obtain CT with contrast of L foot for further eval as he is not an MRI candidate. Will monitor renal fxn in response to IV contrast administration. Plan d/w Dr. Alonzo. Admission and Anticipated Discharge Date Admission Date: January 13, 2022 Subjective Patient was seen on daily rounds this morning. He is resting in bed, reports some pain with weight bearing on left foot but otherwise no issues. Low grade fever this morning. No chest pain or dyspnea. Had a recent PPM insertion 2 weeks ago, no issues since insertion. Review of Systems Review of Systems: All systems reviewed and are unremarkable except as noted in HPI and below. Denies chills, fatigue, headache, nasal congestion, sore throat, cough, chest pain, shortness of breath, palpitations, orthopnea, PND, abdominal pain, n/v/d, constipation, dysuria, hematuria, frequency, back pain, joint pain or swelling, easy bruising or bleeding. Physical Exam Physical Exam: GENERAL: 71 yo Well-developed, well-nourished WM. NAD. LUNGS: Clear to auscultation bilaterally. No W/R/R. CARDIOVASCULAR: Regular rate and rhythm. ABDOMEN: Soft, non-tender and non-distended. BS normoactive x 4 quad. EXTREMITIES: No edema. Non-tender. Peripheral pulses +2/4. NEUROLOGIC: A&O x3. Nonfocal PSYCHIATRIC: Cooperative. Appropriate mood and affect. SKIN: L foot with dime size ulcer on medial aspect of 1st MTP with purulent drainage and erythema extending to mid tib/fib Results & Data Results & Data ([facility]) Vital Signs (Past 12 Hours) Vital Signs Temp Pulse Resp BP Pulse Ox O2 Del Method 01/14/22 11:30 36.9 C 83 21 111/70 95 Room Air 01/14/22 07:59 37.8 C H 93 H 22 132/76 91 Room Air 01/14/22 04:00 36.8 C 91 H 20 156/88 H 93 Room Air Laboratory Results 01/14/22 07:37 01/14/22 07:37 PG Care Time/CCT Total # of Minutes Spent Total Time Spent with Patient: Total time spent is greater than 50% in coordination of care (as documented) at patient's floor/unit and/or counseling patient: Coding Level of Care Code 88641 Subseq Hosp Care Lvl 2 Diagnoses Left foot infection L08.9 Acute on chronic renal insufficiency N28.9; N18.9 CHF (congestive heart failure) I50.9 Type 2 diabetes mellitus E11.9 Hypertension I10 Dyslipidemia E78.5
[2022-01-14] MEDS ORDERED: OPTIRAY 300 100mL IV ONE (16:42)
--- NOTE | 2022-01-14 17:09 | CT Scan Report ---
CT OF THE LEFT FOOT WITH CONTRAST CLINICAL HISTORY: Left foot infection, possible osteomyelitis. COMPARISON STUDY: Left foot radiographs January 13, 2022. TECHNIQUE: Axial images of the left foot were obtained following intravenous injection of 93 cc of Op tiray 300 IV. Sagittal and coronal reconstructions were viewed. Automated exposure control was utiliz ed for the study. A dose lowering technique was utilized adhering to the principles of ALARA. FINDINGS: There is slight increased fluid within the tendon sheath for flexor digitorum longus at the level the distal tibia. Alignment of the left foot is anatomic. Tarsometatarsal joints are intact. N o acute fracture within the left foot is noted. There is no soft tissue gas. There is dorsal subcutan eous edema of the left foot. Note is made of soft tissue thickening within the soft tissues adjacent to the left first metatarsophalangeal joint. There is increased fluid with synovial enhancement of th e left first metatarsophalangeal joint with joint space narrowing. A few soft tissue calcifications a long the medial aspect of the joint are present. No abscess is identified by CT. No clear bony destru ction is identified to suggest acute osteomyelitis by CT. Posterior and plantar calcaneal spurring is present. There are no suspicious osseous lesions. IMPRESSION: Soft tissue thickening along the medial aspect of the left first metatarsophalangeal salima nt. Joint space narrowing with increased fluid within the left first metatarsophalangeal joint with s ynovial enhancement. These findings are nonspecific although an infectious process is favored. Gout i s within the differential. However, cellulitis with septic arthritis of the left first metatarsophala ngeal joint could appear similar. Findings could be correlated with clinical evidence for an infectio us process. No definite evidence for osteomyelitis by CT. No acute fracture. No soft tissue gas. ACT 112: Negative or not required by law. Electronically signed by: Dao Amador M.D. 01/14/2022 5:08 PM
[2022-01-14] MEDS: DAPTOmycin 450 MG in SYRINGE 0 ML IV SCH (18:24)
--- NOTE | 2022-01-14 20:47 | Orthopedic Consultation ---
Date of Consultation January 14, 2022 Assessment & Plan (1) Type 2 diabetes mellitus with left diabetic foot infection: Patient seen, evaluated, and treated. Awaiting arterial EUGENIE for vascular assessment Reviewed possible bossman sign on x-ray and CT. No leukocytosis Reviewed Uric Acid result of wnl however wound does appear to show characteristic tophi drainage. Plan to bone biopsy first metatarsal rule out OM. Patient not candidate for MRI. Thank you for allowing me to participate in this Patient care. I reviewed procedure in detail as well as postoperative recovery with Patient. I discussed expectations and patient's current weightbearing status. All questions answered. I have discussed procedure in detail as well as postoperative recovery. All potential risks, benefits, complications, alternatives, rehab, potential for incomplete relief of symptoms, need for further surgery, DVT, PE, , persistent pain, swelling, scarring, weakness, neurovascular, wound complications and potential for amputations were discussed with patient. Unwanted outcomes such as, but not limited to were reviewed including under correction, overcorrection, return of deformity, infection. All questions were answered. Patient has decided to proceed with procedure as indicated on 01/15/22. History of Present Illness Attending Physician: Noah Alonzo DO History of Present Illness Patient is a 71 year old male seen at bedside for left foot wound. He was seen at [facility] one day earlier and admitted to floor for cellulitis possible OM of first Metatarsal. Previous documentation reviewed. PMHx of DM2 insulin dependent, CKD, CAD s/p CABG and pacemaker, aortic valve replacement, HTN, HLD, Gout, B12 deficiency, hard of hearing, and obesity. The wound started 4 weeks and coincided with new shoes. Initially had pain and erythema around the wound site which progressively got worse. The redness spread to his left lower extremity and also started developing pus from the wound. With the help of his he tried managing the wound at home without success. Allergies Allergy/AdvReac Type Severity Reaction Status Date / Time No Known Drug Allergies Allergy Verified 12/27/20 12:10 Home Medications Medication Instructions Recorded Confirmed Type allopurinol 100 mg tablet 100 mg PO DAILY 12/27/20 01/13/22 History cholecalciferol (vitamin D3) 25 50 mcg PO DAILY 12/27/20 01/13/22 History mcg (1,000 unit) tablet aspirin 81 mg tablet,delayed 81 mg PO DAILY 01/13/22 01/13/22 History release cyanocobalamin (vitamin B-12) 500 500 mcg PO DAILY 01/13/22 01/13/22 History mcg tablet folic acid 1 mg tablet 1 mg PO DAILY 01/13/22 01/13/22 History insulin aspart U-100 100 unit/mL 8 unit subcut AC 01/13/22 01/14/22 History (3 mL) subcutaneous pen (Novolog Flexpen U-100 Insulin aspart) insulin glargine 100 unit/mL (3 See Rx Instructions .Route .COMPLEX 01/13/22 01/13/22 History mL) subcutaneous pen metoprolol succinate 50 mg 50 mg PO DAILY 01/13/22 01/13/22 History tablet,extended release 24 hr triamcinolone acetonide 0.025 % 1 applic topical DAILY 01/13/22 01/13/22 History topical cream vit C 250 mg-vit E 90 mg-zinc 40 1 tab PO BID 01/13/22 01/13/22 History mg-copper 1 [id number] capsule (PreserVision AREDS-2) Patient History Medical History (Updated 01/15/22 @ 16:55 by Tanner Sánchez MD) Acute renal insufficiency Aortic stenosis Cardiomyopathy Diabetes Dyslipidemia Hypertension Type 2 diabetes mellitus Surgical History (Updated 01/15/22 @ 16:53 by Tanner Sánchez MD) Aortic valve replaced History of ear surgery Transtympanic injections for sudden hearing loss Hx of CABG Family History Other No family history of adverse response to anesthesia No family history of bleeding disorder Social History Smoking Status: Never smoker Second Hand Exposure: No; Do You Dip or Chew Tobacco: No; Hx Alcohol Use: Yes Alcohol type: beer Alcohol Intake Frequency Comment: 2 six- packs per week Hx Substance Use: No Preferred Language: Cameroonian Communication Ability: Effective Seo Intern Required: No Beliefs That Will Affect Care: None marital status: Current Living Situation: Spouse current occupational status: retired Other Information That Helps Us Care for You: No Feels Safe at Home: Yes Safety Concerns: Feels Safe At This Time Assistive Devices: None Review of Systems Review of Systems: All systems reviewed & are unremarkable except as noted in HPI & below Physical Exam Constitutional: WD/WN, vitals as above Skin: Left foot full thickness ulcer present with gouty tophi serous drainage exiting wound. Neurologic: Decreased Epicritic sensation bilateral feet. Psychiatric: A+Ox3, euthymic affect Results & Data ([facility]) Vital Signs (Past 12 Hours) Vital Signs Temp Pulse Pulse Resp BP Pulse Ox O2 Del Method 01/14/22 19:18 37 C 75 18 122/75 96 Room Air 01/14/22 14:19 82 01/14/22 15:45 36.9 C 77 20 116/67 98 01/14/22 11:30 36.9 C 83 21 111/70 95 Room Air Laboratory Results Source Foot,Left Procedure/Result Gram Stain - Final Wound Culture - Preliminary Group G Beta Strep Diagnostic Findings CT OF THE LEFT FOOT WITH CONTRAST CLINICAL HISTORY: Left foot infection, possible osteomyelitis. COMPARISON STUDY: Left foot radiographs January 13, 2022. TECHNIQUE: Axial images of the left foot were obtained following intravenous injection of 93 cc of Optiray 300 IV. Sagittal and coronal reconstructions were viewed. Automated exposure control was utilized for the study. A dose lowering technique was utilized adhering to the principles of ALARA. FINDINGS: There is slight increased fluid within the tendon sheath for flexor digitorum longus at the level the distal tibia. Alignment of the left foot is anatomic. Tarsometatarsal joints are intact. No acute fracture within the left foot is noted. There is no soft tissue gas. There is dorsal subcutaneous edema of the left foot. Note is made of soft tissue thickening within the soft tissues adjacent to the left first metatarsophalangeal joint. There is increased fluid with synovial enhancement of the left first metatarsophalangeal joint with joint space narrowing. A few soft tissue calcifications along the medial aspect of the joint are present. No abscess is identified by CT. No clear bony destruction is identified to suggest acute osteomyelitis by CT. Posterior and plantar calcaneal spurring is present. There are no suspicious osseous lesions. IMPRESSION: Soft tissue thickening along the medial aspect of the left first metatarsophalangeal joint. Joint space narrowing with increased fluid within the left first metatarsophalangeal joint with synovial enhancement. These findings are nonspecific although an infectious process is favored. Gout is within the differential. However, cellulitis with septic arthritis of the left first metatarsophalangeal joint could appear similar. Findings could be correlated with clinical evidence for an infectious process. No definite evidence for osteomyelitis by CT. No acute fracture. No soft tissue gas. ACT 112: Negative or not required by law. Electronically signed by: Dao Amador M.D. 01/14/2022 5:08 PM
[2022-01-15] MEDS ORDERED: LANTUS PER UNIT CHARGE SQ SCH ×2 (09:00→21:00)
[2022-01-15] MEDS: INSULIN ASPART PER UNIT SC SCH ×4 (09:39→22:05)
[2022-01-15] MEDS: PIPERACILLIN/TAZOBACTAM 4.5 GM in DEXTROSE 5% 100 ML IV SCH ×3 (09:43→23:25)
[2022-01-15] MEDS: ENOXAPARIN INJ 30 MG/0.3 ML SYR SQ SCH (09:44)
[2022-01-15] MEDS: CYANOCOBALAMIN (B-12) 500 MCG TABLET PO SCH (09:45)
[2022-01-15] MEDS: ASPIRIN 81 MG ECTAB PO SCH (09:45)
[2022-01-15] MEDS: CHOLECALCIFEROL 1,000 UNITS 25 MCG TAB PO SCH (09:45)
[2022-01-15] MEDS: allopurinoL 100 MG TAB PO SCH (09:45)
[2022-01-15] MEDS: METOPROLOL SUCC 50MG EXT REL TAB PO SCH (09:45)
[2022-01-15] MEDS: FOLIC ACID 1 MG TAB PO SCH (09:46)
[2022-01-15 09:49] LABS: Basophils # (auto) 0.04 K/uL (0-0.2); Basophils % (auto) 0.6 %; Eosinophils # (auto) 0.23 K/uL (0-0.50); Eosinophils % (auto) 3.5 %; Hematocrit (blood only) 37.4 % (40.1-51.0); Immature Granulocytes # (auto) 0.03 K/uL (0.00-0.02); Immature Granulocytes % (auto) 0.5 %; Lymphocytes # (auto) 0.79 K/uL (1.2-3.4); Lymphocytes % (auto) 12.1 %; Mean Corpuscular Hemoglobin 28.2 pg (25.0-34.0); Mean Corpuscular Hgb Conc 32.1 g/dL (32.0-36.0); Mean Platelet Volume 10.1 fL (9.4-12.4); Monocytes # (auto) 0.77 K/uL (0.24-0.82); Monocytes % (auto) 11.8 %; Neutrophils # (auto) 4.65 K/uL (1.4-6.5); Neutrophils % (auto) 71.5 %; Platelet Count 276 K/uL (130-400); RDW Coefficient of Variation 14.1 % (11.5-14.5); Red Blood Count 4.25 M/uL (4.63-6.08); White Blood Count 6.51 K/ul (4.8-10.8)
[2022-01-15 10:11] LABS: Creatinine Clr Calc Pharmacy 42.8 ml/min; Est GFR (African American) 43.2 ml/min; Est GFR (Non-African American) 37.3 ml/min; Potassium 4.4 mmol/L (3.5-5.1)
--- NOTE | 2022-01-15 12:03 | Ultrasound Report ---
LEFT LOWER EXTREMITY ARTERIAL DOPPLER ULTRASOUND CLINICAL HISTORY: Left foot infection COMPARISON STUDY: No previous studies for comparison. TECHNIQUE: Color and duplex Doppler sonography of the arterial systems of the left lower extremity wa s performed. FINDINGS: The left ankle-brachial index measured 1.15. The right index measured 1.11. Biphasic flow w ithin the left common femoral and superficial femoral arteries was noted. There was monophasic flow w ithin the left popliteal, anterior tibial, posterior tibial, peroneal and dorsalis pedis vessels. Not e was made of an elevated peak systolic velocity of the proximal anterior tibial artery at 353 cm/s. This suggests a stenosis. No additional elevated velocities were identified. Mild atherosclerotic wayne que was noted within the left lower extremity. IMPRESSION: 1. Mild atherosclerotic plaque within the left lower extremity. Normal ankle to brachial indices. 2. Patent vessels however, monophasic flow within the left calf vessels. Elevated velocity within the proximal left anterior tibial artery suggestive of a hemodynamically significant stenosis. ACT 112: Negative or not required by law. Electronically signed by: Dao Amador M.D. 01/15/2022 12:00 PM
--- NOTE | 2022-01-15 12:29 | Pharmacy Report ---
Pharmacy Glycemic Short Note 2 - Date of Service January 15, 2022 - Glycemic Short BSG Results (Last 24 hours): 01/14/22 01/14/22 01/15/22 16:44 20:25 08:17 Glucose POC Glucose 232 H 188 H 145 H 01/15/22 01/15/22 09:36 11:45 Glucose 138 H POC Glucose 166 H OUTPATIENT ANTIDIABETIC REGIMEN: * Lantus 20 units SQ qAM, 10 units SQ qPM * Novolog 8 units SQ BID with meals * HbA1c: 7.3% (01/14/22) ASSESSMENT: * Mr Guevara is a 71yo diabetic M admitted with L foot ulcer. * Pt received 30 units of basal insulin yesterday, with reasonable fasting BSG this morning. Resumed pt's home basal dosing this morning. * BSG's were elevated throughout the day yesterday, so Novolog parameters were adjusted this morning to provide additional control. * Pre-lunch BSG today much closer to goal * Will continue to monitor and adjust as indicated. PLAN FOR INPATIENT GLYCEMIC CONTROL: * Basal insulin * Lantus 20 units SQ qAM * Lantus 10 units SQ qPM * Bolus insulin * NovoLog per scale ACHS or Q6hrs while NPO * Goal Range: Low 110 mg/dL - High 140 mg/dL * Correction Factor: 20 mg/dL/unit * Nutritional / Prandial insulin per carb ratio of 1 unit per 8 grams CHO consumed
--- NOTE | 2022-01-15 12:36 | Hospitalist Progress Note ---
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 Carty, appreciate assistance - Obtain arterial EUGENIE of L foot to assess vascular status- some concern for stenosis, will consult vascular - ESR elevated, concerned for underlying osteomyelitis, for bone bx this evening, NPO in preparation (2) Acute on chronic renal insufficiency: Plan: - Labs dating back to 12/2020, creatinine 1.5, baseline unknown - [facility] 1.70 on admit, could represent mild SHANNAN on CKD - Creat trended down to 1.59 with some IVF on 01/14 - IVF were stopped d/t some concern for pulmonary edema on imaging - This AM, creat bumped which is expected in light of IV contrast administration, will continue to monitor (3) CHF (congestive heart failure): Plan: - Mild pulmonary edema noted on imaging with elevated BNP of 909 - Echo done 01/14, LV function normal, EF 60-65%, mild LVH - Stopped IVF 01/14 - On room air, not currently short of breath - No clinical evidence of acute HF exacerbation - Continue Metoprolol Succinate and ASA (4) Type 2 diabetes mellitus: Plan: - Lantus 10u at HS and 20u daily with log 8u AC (home regimen) - pharmacy has been consulted for glycemic management - a1c 7.3% (5) Hypertension: Plan: - BP well controlled, continue Toprol XL (6) Dyslipidemia: Plan: - Does not take any statins according to home med list Plan Transition to med/surg, no need for ongoing telemetry monitoring. NPO for bone bx. Continue antibiotics and await finalized culture data in order to narrow coverage. If osteo present, will need minimum of 6w IV abx. Plan d/w Dr. Alonzo. Admission and Anticipated Discharge Date Admission Date: January 13, 2022 Subjective Patient was seen on daily rounds this morning. He is resting in bed, pain in L leg and foot adequately controlled. Afebrile this morning. No chest pain or dyspnea. No cough. For bone biopsy this evening with Dr. Carty to determine if patient has osteomyelitis which could not be determined with MRI d/t recent PPM insertion. Review of Systems Review of Systems: All systems reviewed and are unremarkable except as noted in HPI and below. Denies chills, fatigue, headache, nasal congestion, sore throat, cough, chest pain, shortness of breath, palpitations, orthopnea, PND, abdominal pain, n/v/d, constipation, dysuria, hematuria, frequency, back pain, joint pain or swelling, easy bruising or bleeding. Physical Exam Physical Exam: GENERAL: 71 yo Well-developed, well-nourished WM. NAD. LUNGS: Clear to auscultation bilaterally. No W/R/R. CARDIOVASCULAR: Regular rate and rhythm. ABDOMEN: Soft, non-tender and non-distended. BS normoactive x 4 quad. EXTREMITIES: No edema. Non-tender. Peripheral pulses +2/4. NEUROLOGIC: A&O x3. Nonfocal PSYCHIATRIC: Cooperative. Appropriate mood and affect. SKIN: L foot with wound on medial aspect of 1st MTP with purulent drainage and erythema extending to mid tib/fib Results & Data Results & Data ([facility]) Vital Signs (Past 12 Hours) Vital Signs Temp Pulse Resp BP BP Pulse Ox O2 Del Method 01/15/22 11:02 36.7 C 75 20 133/67 96 Room Air 01/15/22 07:05 36.6 C 78 18 130/78 98 Room Air 01/15/22 02:53 37 C 73 18 129/73 97 Room Air Laboratory Results 01/15/22 09:36 01/15/22 09:[address] 01/14/22 15:31 CT OF THE LEFT FOOT WITH CONTRAST CLINICAL HISTORY: Left foot infection, possible osteomyelitis. COMPARISON STUDY: Left foot radiographs January 13, 2022. TECHNIQUE: Axial images of the left foot were obtained following intravenous injection of 93 cc of Optiray 300 IV. Sagittal and coronal reconstructions were viewed. Automated exposure control was utilized for the study. A dose lowering technique was utilized adhering to the principles of ALARA. FINDINGS: There is slight increased fluid within the tendon sheath for flexor digitorum longus at the level the distal tibia. Alignment of the left foot is anatomic. Tarsometatarsal joints are intact. No acute fracture within the left foot is noted. There is no soft tissue gas. There is dorsal subcutaneous edema of the left foot. Note is made of soft tissue thickening within the soft tissues adjacent to the left first metatarsophalangeal joint. There is increased fluid with synovial enhancement of the left first metatarsophalangeal joint with joint space narrowing. A few soft tissue calcifications along the medial aspect of the joint are present. No abscess is identified by CT. No clear bony destruction is identified to suggest acute osteomyelitis by CT. Posterior and plantar calcaneal spurring is present. There are no suspicious osseous lesions. IMPRESSION: Soft tissue thickening along the medial aspect of the left first metatarsophalangeal joint. Joint space narrowing with increased fluid within the left first metatarsophalangeal joint with synovial enhancement. These findings are nonspecific although an infectious process is favored. Gout is within the differential. However, cellulitis with septic arthritis of the left first metatarsophalangeal joint could appear similar. Findings could be correlated with clinical evidence for an infectious process. No definite evidence for osteomyelitis by CT. No acute fracture. No soft tissue gas. ACT 112: Negative or not required by law. Electronically signed by: Dao Amador M.D. 01/14/2022 5:08 PM Duplex Scan Lower Extremity Artery 01/15/22 00:00 LEFT LOWER EXTREMITY ARTERIAL DOPPLER ULTRASOUND CLINICAL HISTORY: Left foot infection COMPARISON STUDY: No previous studies for comparison. TECHNIQUE: Color and duplex Doppler sonography of the arterial systems of the left lower extremity was performed. FINDINGS: The left ankle-brachial index measured 1.15. The right index measured 1.11. Biphasic flow within the left common femoral and superficial femoral arteries was noted. There was monophasic flow within the left popliteal, an terior tibial, posterior tibial, peroneal and dorsalis pedis vessels. Note was made of an elevated peak systolic velocity of the proximal anterior tibial artery at 353 cm/s. This suggests a stenosis. No additional elevated velocities were identified. Mild atherosclerotic plaque was noted within the left lower extremity. IMPRESSION: 1. Mild atherosclerotic plaque within the left lower extremity. Normal ankle to brachial indices. 2. Patent vessels however, monophasic flow within the left calf vessels. Elevated velocity within the proximal left anterior tibial artery suggestive of a hemodynamically significant stenosis. ACT 112: Negative or not required by law. Electronically signed by: Dao Amador M.D. 01/15/2022 12:00 PM PG Care Time/CCT Total # of Minutes Spent Total Time Spent with Patient: Total time spent is greater than 50% in coordination of care (as documented) at patient's floor/unit and/or counseling patient: Coding Level of Care Code 80415 Subseq Hosp Care Lvl 3 Diagnoses Left foot infection L08.9 Acute on chronic renal insufficiency N28.9; N18.9 CHF (congestive heart failure) I50.9 Type 2 diabetes mellitus E11.9 Hypertension I10 Dyslipidemia E78.5
--- NOTE | 2022-01-15 16:55 | Anesthesiology Consultation ---
Date of Service January 15, 2022 Assessment & Plan (1) Encounter for pre-operative examination: Chart Review Chart Review: Acceptable Risk for Surgery and Patient NOT seen in Pre Admission Testing Consults Requested none History Surgery Operation Date: 01/15/22 11:40 Proposed Procedures p Left Foot Bone Biopsy - Ramon Carty, DPM, MS Height/Weight Height: 5 ft 7 in Weight: 104.2 kg Allergies Allergy/AdvReac Type Severity Reaction Status Date / Time No Known Drug Allergies Allergy Verified 12/27/20 12:10 Medications Home Medications Medication Instructions Recorded Confirmed Last Taken allopurinol 100 mg tablet 100 mg PO DAILY 12/27/20 01/13/22 Unknown cholecalciferol (vitamin D3) 25 50 mcg PO DAILY 12/27/20 01/13/22 Unknown mcg (1,000 unit) tablet aspirin 81 mg tablet,delayed 81 mg PO DAILY 01/13/22 01/13/22 Unknown release cyanocobalamin (vitamin B-12) 500 500 mcg PO DAILY 01/13/22 01/13/22 Unknown mcg tablet folic acid 1 mg tablet 1 mg PO DAILY 01/13/22 01/13/22 Unknown insulin aspart U-100 100 unit/mL 8 unit subcut AC 01/13/22 01/14/22 Unknown (3 mL) subcutaneous pen (Novolog Flexpen U-100 Insulin aspart) insulin glargine 100 unit/mL (3 See Rx Instructions .Route .COMPLEX 01/13/22 01/13/22 Unknown mL) subcutaneous pen metoprolol succinate 50 mg 50 mg PO DAILY 01/13/22 01/13/22 Unknown tablet,extended release 24 hr triamcinolone acetonide 0.025 % 1 applic topical DAILY 01/13/22 01/13/22 Unknown topical cream vit C 250 mg-vit E 90 mg-zinc 40 1 tab PO BID 01/13/22 01/13/22 Unknown mg-copper 1 [id number] capsule (PreserVision AREDS-2) Active Medications Generic Name Dose Route Start Last Admin Trade Name Freq PRN Reason Stop Dose Admin Allopurinol 100 mg 01/14/22 09:00 01/15/22 09:45 Allopurinol 100 Mg Tab PO 02/13/22 08:59 100 mg DAILY PERRY Administration Aspirin 81 mg 01/14/22 09:00 01/15/22 09:45 Aspirin 81 Mg Ectab PO 02/13/22 08:59 81 mg DAILY PERRY Administration Cyanocobalamin 500 mcg 01/14/22 09:00 01/15/22 09:45 Cyanocobalamin (B-12) 500 Mcg Tablet PO 02/13/22 08:59 500 mcg DAILY PERRY Administration Enoxaparin Sodium 30 mg 01/14/22 09:00 01/15/22 09:44 Enoxaparin Inj 30 Mg/0.3 Ml Syr SQ 02/13/22 08:59 30 mg Q24H PERRY Administration Folic Acid 1 mg 01/14/22 09:00 01/15/22 09:46 Folic Acid 1 Mg Tab PO 02/13/22 08:59 1 mg DAILY PERRY Administration Daptomycin 450 mg/ Syringe 9 mls @ 4.5 mls/min 01/13/22 19:15 01/14/22 18:24 IV 01/15/22 19:14 4.5 mls/min Q24H PERRY Administration Protocol Piperacillin Sod/Tazobactam 120 mls @ 30 mls/hr 01/14/22 00:00 01/15/22 14:06 Sod 4.5 gm/ Dextrose IV 01/21/22 00:00 Infused Q8H PERRY Infusion Protocol Insulin Aspart 0 units 01/14/22 02:00 01/15/22 13:33 Insulin Aspart Per Unit SC 02/13/22 01:59 2 units ACHS PERRY Administration Insulin Glargine 20 units 01/15/22 09:00 01/15/22 09:40 Lantus Per Unit Charge SQ 02/14/22 08:59 20 units QAM PERRY Administration Metoprolol Succinate 50 mg 01/14/22 09:00 01/15/22 09:45 Metoprolol Succ 50mg Ext Rel Tab PO 02/13/22 08:59 50 mg DAILY PERRY Administration Vitamin D 2,000 units 01/14/22 09:00 01/15/22 09:45 Cholecalciferol 1,000 Units 25 Mcg Tab PO 02/13/22 08:59 2,000 units DAILY PERRY Administration Past Medical History Medical History (Updated 01/15/22 @ 16:55 by Tanner Sánchez MD) Acute renal insufficiency Aortic stenosis Cardiomyopathy Diabetes Dyslipidemia Hypertension Type 2 diabetes mellitus HFrEF Cardiomyopathy CAD s/p CABG s/p aortic valve replacement Pacemaker in place HTN Past Family History Family History Other No family history of adverse response to anesthesia No family history of bleeding disorder Past Surgical History Surgical History (Updated 01/15/22 @ 16:53 by Tanner Sánchez MD) Aortic valve replaced History of ear surgery Transtympanic injections for sudden hearing loss Hx of CABG Social History Smoking Status: Never smoker Do You Dip or Chew Tobacco: No Hx Alcohol Use: Yes Alcohol type: beer alcohol intake frequency: a few times a week Hx Substance Use: No substance use type: does not use Physical Exam Vital Signs Last Vital Signs Temp 36.7 C 01/15/22 16:12 Pulse 75 01/15/22 16:12 Resp 18 01/15/22 16:12 BP 142/81 H 01/15/22 16:12 Pulse Ox 94 01/15/22 16:12 O2 Del Method 01/15/22 16:12 Testing Laboratory Results 01/15/22 09:36 01/15/22 09:36 PT 11.1 Seconds (9.0-12.0) 01/13/22 17:55 INR 1.0 (0.9-1.1) 01/13/22 17:55 APTT 27.1 Seconds (21.0-31.0) 01/13/22 17:55 Hemoglobin A1c 7.3 % (4.5-5.6) H 01/14/22 07:37 Urine Color Yellow 01/14/22 04:15 Urine Appearance Clear (Clear) 01/14/22 04:15 Urine pH 5.5 (4.5-7.5) 01/14/22 04:15 Ur Specific [place] 1.020 (1.000-1.030) 01/14/22 04:15 Urine Protein 1+ (Negative) H 01/14/22 04:15 Urine Glucose (UA) Negative (Negative) 01/14/22 04:15 Urine Ketones Trace (Negative) H 01/14/22 04:15 Urine Nitrite Negative (Negative) 01/14/22 04:15 Ur Leukocyte Esterase Negative (Negative) 01/14/22 04:15 Urine WBC (Auto) 1-5 /hpf (0-5) 01/14/22 04:15 Urine RBC (Auto) 5-10 /hpf (0-4) H 01/14/22 04:15 U Hyaline Cast (Auto) 0 /lpf (0-5) 01/14/22 04:15 U Epithel Cells (Auto) 0-5 /lpf (0-5) 01/14/22 04:15 Urine Bacteria (Auto) Negative (Negative) 01/14/22 04:15 01/13/22 17:30 Gram Stain - Final Foot,Left Wound Culture - Preliminary Group G Beta Strep Staphylococcus species 01/13/22 18:41 Aerobic Blood Culture - Preliminary Blood No growth in Aerobic bottle after 24 hours. Anaerobic Blood Culture - Final 01/13/22 17:55 Aerobic Blood Culture - Preliminary Blood No growth in Aerobic bottle after 24 hours. Anaerobic Blood Culture - Final 01/15/22 01/15/22 01/15/22 16:33 11:45 08:17 POC Glucose 106 H 166 H 145 H Electrocardiogram Date: 01/13/22 DICTATED BY:Azar Higgins MD Test Reason : Blood Pressure : / mmHG Vent. Rate : 079 BPM Atrial Rate : 079 BPM P-R Int : 178 ms QRS Dur : 140 ms QT Int : 434 ms P-R-T Axes : 007 189 035 degrees QTc Int : 497 ms Poor data quality, interpretation may be adversely affected Sinus rhythm with occasional Premature ventricular complexes Question atrial paced beat Right bundle branch block T wave abnormality, consider lateral ischemia Abnormal ECG No previous ECGs available Confirmed by Azar Higgins ([id number]) on 01/14/2022 12:05:19 PM Echocardiogram Date: 01/14/22 LV systolic function is normal. No RWMA Mild LVH EF 60-65% No valvular vegetation identified
[2022-01-15] MEDS ORDERED: fentaNYL citrate 100 MCG/2 ML VIAL IV PRN (19:48)
[2022-01-15] MEDS ORDERED: ATROPINE SULFATE 0.1 MG/ML 10ML SYR IV PRN (19:48)
[2022-01-15] MEDS ORDERED: ePHEDrine sulfate 50 MG/ML AMP IV PRN (19:48)
[2022-01-15] MEDS ORDERED: ONDANSETRON INJ 2 MG/ML 2 ML VIAL IV PRN (19:48)
--- NOTE | 2022-01-15 19:51 | History & Physical Bridge Note ---
Date of Service January 15, 2022 History & Physical Bridge Note I have examined the patient, reviewed the History & Physical and in the interval since the performance of the History & Physical I have noted the following changes of clinical significance: no changes noted
[2022-01-15] MEDS ORDERED: MIDAZOLAM HCL 1 MG/ML 2ML VIAL ONE (19:56)
[2022-01-15] MEDS ORDERED: PROPOFOL IV EMULSION 10 MG/ML 20 ML VIAL IV ONE (19:56)
[2022-01-15] MEDS ORDERED: fentaNYL citrate 100 MCG/2 ML VIAL ONE (19:56)
[2022-01-15] MEDS ORDERED: LIDOCAINE 1% LOCAL 20 ML VIAL ONE (20:09)
--- NOTE | 2022-01-15 20:52 | Post Operative Brief Note ---
Immediate Post Op Note v1 Date of Surgery January 15, 2022 Pre & Post Diagnosis Operation Date: 01/15/22 11:40 Pre-Op Diagnosis: Type 2 diabetes mellitus with left diabetic foot infection Post-Op Diagnosis: Type 2 diabetes mellitus with left diabetic foot infection I identified the patient and participated in the time-out.: Yes Procedure Operation Date: 01/15/22 11:40 Actual Procedures p Debridement of wound left foot; Bone biopsy left 1st metatarsal(Left) - Ramon Carty DPM, MS Surgeon Ramon Carty DPM, MS Sagger Preparer None Estimated Blood Loss 0 Findings Consistent with Post-Op Diagnosis Complications None
--- NOTE | 2022-01-15 21:05 | Anesthesiology Progress Note ---
Date of Service January 15, 2022 Anesthesia Post Procedure Vital Signs Vital Signs: Temp Pulse Resp BP BP Pulse Ox O2 Del Method 01/15/22 19:22 36.7 C 79 18 174/96 H 98 Room Air 01/15/22 19:04 36.9 C 73 18 138/71 94 Room Air 01/15/22 16:12 36.7 C 75 18 142/81 H 94 Room Air 01/15/22 11:02 36.7 C 75 20 133/67 96 Room Air 01/15/22 07:05 36.6 C 78 18 130/78 98 Room Air 01/15/22 02:53 37 C 73 18 129/73 97 Room Air 01/14/22 23:15 37.2 C 78 18 124/70 96 Room Air Pain Intensity Left Foot: Pain Intensity: 0 Transfer of Care Handoff Completed per policy Notes Mental Status: alert / awake / arousable Patient Amnestic to Procedure: Yes Nausea / Vomiting: adequately controlled Pain: adequately controlled Airway Patency, RR, SpO2: stable & adequate BP & HR: stable & adequate Hydration State: stable & adequate Anesthetic Complications: no major complications apparent
--- NOTE | 2022-01-15 21:11 | Operative Report ---
Post Operative Report Pre & Post Diagnosis Operation Date: 01/15/22 11:40 Pre-Op Diagnosis: Type 2 diabetes mellitus with left diabetic foot infection Post-Op Diagnosis: Type 2 diabetes mellitus with left diabetic foot infection I identified the patient and participated in the time-out.: Yes Procedure Operation Date: 01/15/22 11:40 Actual Procedures p Debridement of wound left foot; Bone biopsy left 1st metatarsal(Left) - Ramon Carty DPM, MS Surgeon Ramon Carty DPM, MS Social Service Worker None Estimated Blood Loss 0 Findings Consistent with Post-Op Diagnosis none Specimens Left foot ulcer Exudate - path 1st Met left - path 1st met Left -micro Description of Procedure History of present illness: Patient is a type II diabetic, 71 year old male who is seen for treatment of left foot Diabet ulcer. Patient notes a diabetic foot ulcer open for multiple weeks. X-rays and CT show positive bone erosion. Patient also has gout tophi exiting wound. He is seen for bone biopsy to rule out Osteomyelitis. Patient is unable to utilize MRI due to pacemaker. Patient relates minimal discomfort. All questions answered. Discussed procedure in detail and postoperative recovery. All potential risks, benefits, complications, alternatives, rehab, potential for incomplete relief of symptoms, need for further surgery, DVT, PE, , persistent pain, swelling, scarring, weakness, neurovascular, wound complications and potential for amputations were discussed with patient. Unwanted outcomes such as, but not limited to were reviewed including under correction, overcorrection, return of deformity, infection. All questions were answered. Patient has decided to proceed with procedure as indicated. Preoperative diagnosis: Diabetic ulcer possible osteomyelitis left first metatarsal Postoperative diagnosis: same Name of operation: 1.) left diabetic wound debridement 2.) Left foot bone biospy first metatarsal Surgeon Dr. Carty Social Service Worker: None Anesthesia: local with monitored anesthesia care Hemostasis: None Estimated blood loss: minimal Procedure in detail: Under mild sedation the patient was brought in the operating room placed on the operating table in supine position. Following IV sedation local anesthesia was obtained about the left first ray utilizing 10 cc of 1% lidocaine plain. The foot was then prepped scrubbed and draped in usual aseptic manner. Attention was then directed to a nonhealing diabetic ulcer on the left foot over the first metatarsal. The diabetic foot ulcer measures roughly 2cm x 2cm x 0.5cm and probes to bone. Utilizing a sharp, sterile, #15 blade devitalized tissue from wound bed is removed. Small white particles presumably tophacous gout from wound bed and exudate is placed in formalin and sent to pathology. Post debridement measurements of the wound are roughly 2cm x 2cm x 0.5cm. At this time utilizing a needle biopsy bone from first metatarsal is harvested and placed in formalin to pathlogy and bone from first metatarsal is harvested and sent to microbiology for cultures and sensativities. Copious amounts of normal saline were utilized to flush the wound. Upon completion of the procedure the incision was dressed with sterile compressive dressing consisting of 4 x 4's Roxana Kerlix The Patient tolerated the procedure and anesthesia well. He was transferred to recovery room vital signs stable and vascular status intact all toes of the left foot following. Postoperative monitoring the patient will be re-admited to the floor resuming all pre operative orders. I attest to the content of the Intraoperative Record and any orders documented therein. Any exceptions are noted below.
[2022-01-16] MEDS: allopurinoL 100 MG TAB PO SCH (08:10)
[2022-01-16] MEDS: CYANOCOBALAMIN (B-12) 500 MCG TABLET PO SCH (08:10)
[2022-01-16] MEDS: FOLIC ACID 1 MG TAB PO SCH (08:10)
[2022-01-16] MEDS: ASPIRIN 81 MG ECTAB PO SCH (08:10)
[2022-01-16] MEDS: METOPROLOL SUCC 50MG EXT REL TAB PO SCH (08:10)
[2022-01-16] MEDS: CHOLECALCIFEROL 1,000 UNITS 25 MCG TAB PO SCH (08:10)
[2022-01-16] MEDS: ENOXAPARIN INJ 30 MG/0.3 ML SYR SQ SCH (08:10)
[2022-01-16] MEDS ORDERED: GLUCOSE 10 TAB/TUBE PO PRN (08:30)
[2022-01-16] MEDS ORDERED: GLUCOSE 40% GEL 15 GM TUBE PO PRN (08:30)
[2022-01-16] MEDS ORDERED: DEXTROSE 50% 50 ML SYRINGE IV PRN (08:30)
[2022-01-16] MEDS ORDERED: GLUCAGON FOR INJ 1 MG VIAL IM PRN (08:30)
[2022-01-16] MEDS ORDERED: CARBOHYDRATES FOR HYPOGLYCEMIA PO PRN (08:30)
[2022-01-16] MEDS: AMPICILLIN/SULBACTAM SOD 3,000 MG in 0.9 % SODIUM CHLORIDE 100 ML IV SCH ×3 (09:40→19:56)
[2022-01-16] MEDS: DAPTOmycin 500 MG in SYRINGE 0 ML IV SCH (09:40)
[2022-01-16] MEDS: LANTUS PER UNIT CHARGE SQ SCH ×2 (09:47→20:53)
[2022-01-16] MEDS: INSULIN ASPART PER UNIT SC SCH ×4 (09:47→20:52)
--- NOTE | 2022-01-16 10:31 | Consultation ---
Date of Consultation January 16, 2022 Assessment & Plan (1) Peripheral arterial disease: Pt with moderate PAD by US. The calculated EUGENIE is likely falsely elevated d/t calcification. Aside from the ulcerated area, his toes appear well perfused and healthy. Podiatry post op dressing was not removed today, but good doppler signals were noted to just under the dressing edges. His RLE is easily palpable. Renal fxn is significantly decreased presently. Pt discussed with Dr Parker. Recommends pt continue with local wound care/podiatry care at this time. Will be happy to reeval pt in a few weeks if his wound does not begin to show signs of healing and his renal fxn improves. Pt agreeable to this plan. Please call if needed. History of Present Illness Reason for Consultation: E PAD/foot ulcer Attending Physician: Noah Alonzo DO History of Present Illness 71 yo m with hx of DMII, CAD s/p CABG, HTN, cardiomyopathy, aortic stenosis s/p AVR, gout, CHF, dyslipidemia, admitted with infected L foot wound, seen in consultation today for PAD noted on US. Pt states no prior knowledge or intervention of PAD. States had a vein taken from his leg for coronary bypass and has had chronic edema and mild erythema in LLE since that time. States he purchased new shoes a few weeks ago and developed an ulceration to his L great toe. States it was first some reddened skin, then devloped a blister, then he and his opened it up and were draining pus from it at home and pouring peroxide on it. Wound was not improving, so came to ED. Pt admits some pain and swelling to L foot, but states the redness and swelling is improving since admission. Underwent surgical bone bx last night by Dr Ramon Carty, so has a la rge post op dressing in place. States he would occasionally have some pain across his toes and/or some low back pain when walking, but denies any hx of calf claudication. Denies PATRICK, fever, chest pain, SOB, abd pain, N/V, rest pain, discoloration of toes, other complaints. LLE arterial US demonstrates EUGENIE 1.1 and mostly biphasic flow, with monophasic waveforms distally. Allergies Allergy/AdvReac Type Severity Reaction Status Date / Time No Known Drug Allergies Allergy Verified 12/27/20 12:10 Home Medications Medication Instructions Recorded Confirmed Type allopurinol 100 mg tablet 100 mg PO DAILY 12/27/20 01/13/22 History cholecalciferol (vitamin D3) 25 50 mcg PO DAILY 12/27/20 01/13/22 History mcg (1,000 unit) tablet aspirin 81 mg tablet,delayed 81 mg PO DAILY 01/13/22 01/13/22 History release cyanocobalamin (vitamin B-12) 500 500 mcg PO DAILY 01/13/22 01/13/22 History mcg tablet folic acid 1 mg tablet 1 mg PO DAILY 01/13/22 01/13/22 History insulin aspart U-100 100 unit/mL 8 unit subcut AC 01/13/22 01/14/22 History (3 mL) subcutaneous pen (Novolog Flexpen U-100 Insulin aspart) insulin glargine 100 unit/mL (3 See Rx Instructions .Route .COMPLEX 01/13/22 01/13/22 History mL) subcutaneous pen metoprolol succinate 50 mg 50 mg PO DAILY 01/13/22 01/13/22 History tablet,extended release 24 hr triamcinolone acetonide 0.025 % 1 applic topical DAILY 01/13/22 01/13/22 History topical cream vit C 250 mg-vit E 90 mg-zinc 40 1 tab PO BID 01/13/22 01/13/22 History mg-copper 1 [id number] capsule (PreserVision AREDS-2) Patient History Medical History (Updated 01/16/22 @ 10:26 by Louisa Garcia PA-C) Acute renal insufficiency Aortic stenosis Cardiomyopathy Diabetes Dyslipidemia Hypertension Peripheral arterial disease Type 2 diabetes mellitus Surgical History Aortic valve replaced History of ear surgery Transtympanic injections for sudden hearing loss Hx of CABG Family History Other No family history of adverse response to anesthesia No family history of bleeding disorder Social History Smoking Status: Never smoker Second Hand Exposure: No; Do You Dip or Chew Tobacco: No; Hx Alcohol Use: Yes Alcohol type: beer Alcohol Intake Frequency Comment: 2 six- packs per week Hx Substance Use: No Preferred Language: Tanzanian Communication Ability: Effective Skid Worker Required: No Beliefs That Will Affect Care: None marital status: Current Living Situation: Spouse current occupational status: retired Other Information That Helps Us Care for You: No Feels Safe at Home: Yes Safety Concerns: Feels Safe At This Time Assistive Devices: None Review of Systems Review of Systems: All systems reviewed & are unremarkable except as noted in HPI & below Physical Exam Constitutional: WD/WN, vitals as above + morbidly obese, cooperative and comfortable; not in distress ENMT: Ears: + hearing impairment (hearing aid in place) Neck: trachea midline Respiratory: normal respiratory effort, lungs clear to auscultation Auscultation: + diminished lung sounds Cardiovascular: Rate/Rhythm: regular rate and regular rhythm Vessels: femoral pulses present, posterior tibial pulses present (RLE +1, LLE good doppler.), dorsalis pedis pulses present (RLE +2, LLE good ant tib doppler. Dressing not removed.) and radial pulses present; + abnormal peripheral pulses Extremities: normal capillary refill and + edema (and warmth to LLE) Gastrointestinal (Abdomen): Inspection/Auscultation: abdomen normal to inspection and normal bowel sounds Percussion/Palpation: abdomen soft; abdomen nontender Musculoskeletal: no cyanosis or clubbing, extremities motor strength 5/5 Skin: + rash (faint erythema noted LLE) and + ulcer (LLE 1st toe, dressing not removed. Photos reviewed. ) Neurologic: moves all extremities and awake; no focal motor deficits and not confused Psychiatric: A+Ox3, euthymic affect Results & Data ([facility]) Vital Signs (Past 12 Hours) Vital Signs Temp Pulse Pulse Resp BP Pulse Ox O2 Del Method 01/16/22 07:51 36.9 C 84 18 157/68 H 94 Room Air 01/16/22 03:15 36.6 C 79 18 122/67 95 Room Air 01/15/22 23:15 36.6 C 72 16 109/70 93 Room Air 01/15/22 22:45 36.6 C 72 20 117/54 L 93 Room Air
--- NOTE | 2022-01-16 14:03 | Hospitalist Progress Note ---
Date of Service January 16, 2022 Assessment & Plan (1) Left foot infection: Plan: - Empirically on Zosyn and Daptomycin - MRSA nares + isolation precautions in place - Wound culture prelim Group G Beta Strep & Staph, final results pending - Blood cultures pending-thus far NGTD - Evidence of bony erosion of first MTP on xray, obtain CT w/ contrast (results above) - concern for septic arthritis +/- OM - Pt is NOT a candidate for MRI d/t recent PPM insertion - Wound care consulted, appreciate assistance - Discussed case with podiatry, Dr. Carty, appreciate assistance - Obtain arterial EUGENIE of L foot to assess vascular status- some concern for stenosis, vascular consulted, appreciate assistance, o/p follow up - ESR elevated, concerned for underlying osteomyelitis s/p bone biopsy and debridement of wound, biopsy is pending - Antibiotics have been narrowed based on culture data from Zosyn/Dapto to Unasyn and resumed Dapto (Dapto fell off on 01/15) (2) Acute on chronic renal insufficiency: Plan: - Labs dating back to 12/2020, creatinine 1.5, baseline unknown - GROUNDS MAINTENANCE SUPERVISOR 1.70 on admit, could represent mild SHANNAN on CKD - Creat trended down to 1.59 with some IVF on 01/14 - IVF were stopped d/t some concern for pulmonary edema on imaging - This AM, creat bumped which is expected in light of IV contrast administration, will continue to monitor (3) CHF (congestive heart failure): Plan: - Mild pulmonary edema noted on imaging with elevated BNP of 909 - Echo done 01/14, LV function normal, EF 60-65%, mild LVH - Stopped IVF 01/14 - On room air, not currently short of breath - No clinical evidence of acute HF exacerbation - Continue Metoprolol Succinate and ASA (4) Type 2 diabetes mellitus: Plan: - Lantus 10u at HS and 20u daily with log 8u AC (home regimen) - pharmacy has been consulted for glycemic management - a1c 7.3% (5) Hypertension: Plan: - BP well controlled, continue Toprol XL (6) Dyslipidemia: Plan: - Does not take any statins according to home med list Plan Continue antibiotics as outlined above. If osteo present, will need minimum of 6w IV abx with placement of picc line and ID consult. Repeat labs ordered for tomorrow AM. Plan d/w Dr. Alonzo. Admission and Anticipated Discharge Date Admission Date: January 13, 2022 Subjective Patient was seen on daily rounds this morning. Underwent bone biopsy yesterday evening by Dr. Carty and sent to pathology. Some tophi seen as well as exudate. Pt notes pain is adequately controlled. Denies chest pain or dyspnea. No numbness/tingling of extremity. Review of Systems Review of Systems: All systems reviewed and are unremarkable except as noted in HPI and below. Denies chills, fatigue, headache, nasal congestion, sore throat, cough, chest pain, shortness of breath, palpitations, orthopnea, PND, abdominal pain, n/v/d, constipation, dysuria, hematuria, frequency, back pain, joint pain or swelling, easy bruising or bleeding. Physical Exam Physical Exam: GENERAL: 71 yo Well-developed, well-nourished WM. NAD. LUNGS: Clear to auscultation bilaterally. No W/R/R. CARDIOVASCULAR: Regular rate and rhythm. ABDOMEN: Soft, non-tender and non-distended. BS normoactive x 4 quad. EXTREMITIES: No edema. Non-tender. Peripheral pulses +2/4. NEUROLOGIC: A&O x3. Nonfocal PSYCHIATRIC: Cooperative. Appropriate mood and affect. SKIN: L foot is dressed. Erythema is receding. Nontender. Results & Data Results & Data ([facility]) Vital Signs (Past 12 Hours) Vital Signs Temp Pulse Pulse Resp BP Pulse Ox O2 Del Method 01/16/22 11:22 36.9 C 79 18 104/69 93 Room Air 01/16/22 07:51 36.9 C 84 18 157/68 H 94 Room Air 01/16/22 03:15 36.6 C 79 18 122/67 95 Room Air PG Care Time/CCT Total # of Minutes Spent Total Time Spent with Patient: Total time spent is greater than 50% in coordination of care (as documented) at patient's floor/unit and/or counseling patient: Coding Level of Care Code 54166 Subseq Hosp Care Lvl 2 Diagnoses Left foot infection L08.9 Acute on chronic renal insufficiency N28.9; N18.9 CHF (congestive heart failure) I50.9 Type 2 diabetes mellitus E11.9 Hypertension I10 Dyslipidemia E78.5
[2022-01-17] MEDS: AMPICILLIN/SULBACTAM SOD 3,000 MG in 0.9 % SODIUM CHLORIDE 100 ML IV SCH ×4 (01:54→19:22)
[2022-01-17 06:25] LABS: Basophils # (auto) 0.03 K/uL (0-0.2); Basophils % (auto) 0.4 %; Eosinophils # (auto) 0.22 K/uL (0-0.50); Eosinophils % (auto) 3.2 %; Hematocrit (blood only) 33.9 % (40.1-51.0); Immature Granulocytes # (auto) 0.03 K/uL (0.00-0.02); Immature Granulocytes % (auto) 0.4 %; Lymphocytes # (auto) 0.78 K/uL (1.2-3.4); Lymphocytes % (auto) 11.3 %; Mean Corpuscular Hemoglobin 28.2 pg (25.0-34.0); Mean Corpuscular Hgb Conc 32.4 g/dL (32.0-36.0); Mean Corpuscular Volume 86.9 fL (80.0-100.0); Mean Platelet Volume 9.8 fL (9.4-12.4); Monocytes % (auto) 10.2 %; Neutrophils # (auto) 5.13 K/uL (1.4-6.5); Neutrophils % (auto) 74.5 %; Platelet Count 333 K/uL (130-400); RDW Standard Deviation 44.5 fL (36.4-46.3); White Blood Count 6.89 K/ul (4.8-10.8)
[2022-01-17 06:53] LABS: BUN Creatinine Ratio 12.5 (10-20); Calcium 8.6 mg/dl (8.5-10.1); Creatinine Clr Calc Pharmacy 47.3 ml/min; Est GFR (African American) 48.8 ml/min; Est GFR (Non-African American) 42.1 ml/min; Potassium 3.8 mmol/L (3.5-5.1)
[2022-01-17] MEDS ORDERED: LANTUS PER UNIT CHARGE SQ SCH ×2 (09:00)
[2022-01-17] MEDS: INSULIN ASPART PER UNIT SC SCH ×4 (09:38→21:05)
[2022-01-17] MEDS: CHOLECALCIFEROL 1,000 UNITS 25 MCG TAB PO SCH (09:40)
[2022-01-17] MEDS: allopurinoL 100 MG TAB PO SCH (09:40)
[2022-01-17] MEDS: CYANOCOBALAMIN (B-12) 500 MCG TABLET PO SCH (09:40)
[2022-01-17] MEDS: ASPIRIN 81 MG ECTAB PO SCH (09:40)
[2022-01-17] MEDS: FOLIC ACID 1 MG TAB PO SCH (09:40)
[2022-01-17] MEDS: METOPROLOL SUCC 50MG EXT REL TAB PO SCH (09:40)
[2022-01-17] MEDS: ENOXAPARIN INJ 30 MG/0.3 ML SYR SQ SCH (09:42)
[2022-01-17] MEDS: DAPTOmycin 500 MG in SYRINGE 0 ML IV SCH (09:51)
--- NOTE | 2022-01-17 15:46 | Hospitalist Progress Note ---
Date of Service January 17, 2022 Assessment & Plan (1) Left foot infection: Plan: - Empirically placed on Zosyn and Daptomycin - MRSA nares + isolation precautions in place - Wound culture: Group G Beta Strep & MRSA - Blood cultures pending-thus far NGTD - Evidence of bony erosion of first MTP on xray, obtain CT w/ contrast (results above) - concern for septic arthritis +/- OM - Pt is NOT a candidate for MRI d/t recent PPM insertion - Wound care consulted, appreciate assistance - Discussed case with podiatry, Dr. 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, could represent mild SHANNAN on CKD - Creat trended down to 1.59 with some IVF on 01/14 - IVF were stopped d/t some concern for pulmonary edema on imaging - Creat bumped which is expected in light of IV contrast administration, will continue to monitor (3) CHF (congestive heart failure): Plan: - Mild pulmonary edema noted on imaging with elevated BNP of 909 - Echo done 01/14, LV function normal, EF 60-65%, mild LVH - Stopped IVF 01/14 - On room air, not currently short of breath - No clinical evidence of acute HF exacerbation - Continue Metoprolol Succinate and ASA (4) Type 2 diabetes mellitus: Plan: - Lantus 10u at HS and 20u daily with log 8u AC (home regimen) - pharmacy has been consulted for glycemic management - a1c 7.3% (5) Hypertension: Plan: - BP well controlled, continue Toprol XL (6) Dyslipidemia: Plan: - Does not take any statins according to home med list Plan Continue antibiotics as outlined above. If osteo present, will need minimum of 6w IV abx with placement of picc line and ID consult. Bone bx path still pending. Plan d/w Dr. Alonzo. Admission and Anticipated Discharge Date Admission Date: January 13, 2022 Subjective Patient was seen on daily rounds this morning. Pt notes pain is adequately controlled. Denies chest pain or dyspnea. No numbness/tingling of extremity. No complaints, wondering about when he will be able to be discharged. Review of Systems Review of Systems: All systems reviewed and are unremarkable except as noted in HPI and below. Denies chills, fatigue, headache, nasal congestion, sore throat, cough, chest pain, shortness of breath, palpitations, orthopnea, PND, abdominal pain, n/v/d, constipation, dysuria, hematuria, frequency, back pain, joint pain or swelling, easy bruising or bleeding. Physical Exam Physical Exam: GENERAL: 71 yo Well-developed, well-nourished WM. NAD. LUNGS: Clear to auscultation bilaterally. No W/R/R. CARDIOVASCULAR: Regular rate and rhythm. ABDOMEN: Soft, non-tender and non-distended. BS normoactive x 4 quad. EXTREMITIES: No edema. Non-tender. Peripheral pulses +2/4. NEUROLOGIC: A&O x3. Nonfocal PSYCHIATRIC: Cooperative. Appropriate mood and affect. SKIN: L foot is dressed. Erythema is receding. Nontender. Results & Data Results & Data ([facility]) Vital Signs (Past 12 Hours) Vital Signs Temp Pulse Resp BP Pulse Ox O2 Del Method 01/17/22 11:41 37.0 C 94 H 16 129/71 97 Room Air 01/17/22 08:55 37.1 C 79 16 146/75 H 97 Room Air Laboratory Results 01/17/22 05:53 01/17/22 05:53 PG Care Time/CCT Total # of Minutes Spent Total Time Spent with Patient: Total time spent is greater than 50% in coordination of care (as documented) at patient's floor/unit and/or counseling patient: Coding Level of Care Code 94356 Subseq Hosp Care Lvl 2 Diagnoses Left foot infection L08.9 Acute on chronic renal insufficiency N28.9; N18.9 CHF (congestive heart failure) I50.9 Type 2 diabetes mellitus E11.9 Hypertension I10 Dyslipidemia E78.5
[2022-01-17] MEDS: LANTUS PER UNIT CHARGE SQ SCH (21:06)
[2022-01-18] MEDS: AMPICILLIN/SULBACTAM SOD 3,000 MG in 0.9 % SODIUM CHLORIDE 100 ML IV SCH ×4 (01:14→20:07)
--- NOTE | 2022-01-18 07:53 | Orthopedic Progress Note ---
Date of Service January 18, 2022 Assessment & Plan (1) Type 2 diabetes mellitus with left diabetic foot infection: Plan: Patient status post bone biopsy first metatarsal Left foot completed 01/15. Awaiting Pathology report, bone biopsy has grown Group B strep, awaiting sensitivities Patient will require 6 weeks IV abx therapy. Abx recommendation from ID. Awaiting arterial EUGENIE for vascular assessment Thank you for allowing me to participate in this Patient care. Admission and Anticipated Discharge Date Admission Date: January 13, 2022 Subjective Patient seen at bedside resting comfortably. He denies any complaints or concerns. Physical Exam Constitutional: WD/WN, vitals as above Psychiatric: A+Ox3, euthymic affect Results & Data ([facility]) Vital Signs (Past 12 Hours) Vital Signs Temp Pulse Pulse Resp BP Pulse Ox O2 Del Method 01/18/22 03:27 36.4 C L 77 16 138/69 94 Room Air 01/17/22 22:15 87 01/17/22 23:25 36.7 C 78 16 147/79 H 98 Room Air
[2022-01-18] MEDS: CHOLECALCIFEROL 1,000 UNITS 25 MCG TAB PO SCH (08:00)
[2022-01-18] MEDS: ASPIRIN 81 MG ECTAB PO SCH (08:00)
[2022-01-18] MEDS: allopurinoL 100 MG TAB PO SCH (08:00)
[2022-01-18] MEDS: CYANOCOBALAMIN (B-12) 500 MCG TABLET PO SCH (08:00)
[2022-01-18] MEDS: DAPTOmycin 500 MG in SYRINGE 0 ML IV SCH (08:00)
[2022-01-18] MEDS: FOLIC ACID 1 MG TAB PO SCH (08:00)
[2022-01-18] MEDS: ENOXAPARIN INJ 30 MG/0.3 ML SYR SQ SCH (08:01)
[2022-01-18] MEDS: METOPROLOL SUCC 50MG EXT REL TAB PO SCH (08:06)
[2022-01-18] MEDS: LANTUS PER UNIT CHARGE SQ SCH ×2 (08:49→20:08)
[2022-01-18] MEDS: INSULIN ASPART PER UNIT SC SCH ×4 (08:49→20:07)
--- NOTE | 2022-01-18 12:24 | Hospitalist Progress Note ---
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 Carty on 01/15 - Wound care consulted, appreciate assistance - L Arterial duplex-concern for HD significant stenosis, vascular consulted, no plans for anything urgent, o/p follow up - Antibiotics have been narrowed based on culture data from Zosyn/Dapto to Unasyn and resumed Dapto 01/16 (Dapto fell off on 01/15) - Osteo confirmed with growth of strep noted on bone bx - Will need minimum of 6w IV abx - picc line ordered, consent obtained - Consult ID for best abx choice, will consult case management for dc planning and to determine home iv abx coverage (2) Acute on chronic renal insufficiency: Plan: - Labs dating back to 12/2020, creatinine 1.5, baseline unknown - 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, could represent mild SHANNAN on CKD - Creat trended down to 1.59 with some IVF on 01/14 - IVF were stopped d/t some concern for pulmonary edema on imaging - Creat bumped which is expected in light of IV contrast administration, will continue to monitor (3) CHF (congestive heart failure): Plan: - Mild pulmonary edema noted on imaging with elevated BNP of 909 - Echo done 01/14, LV function normal, EF 60-65%, mild LVH - Stopped IVF 01/14 - On room air, not currently short of breath - No clinical evidence of acute HF exacerbation - Continue Metoprolol Succinate and ASA (4) Type 2 diabetes mellitus: Plan: - Lantus 10u at HS and 20u daily with log 8u AC (home regimen) - pharmacy has been consulted for glycemic management - a1c 7.3% (5) Hypertension: Plan: - BP well controlled, continue Toprol XL (6) Dyslipidemia: Plan: - Does not take any statins according to home med list Plan Interventions as outlined above. Blood cx negative so picc line ordered. CM/ID consult to work on d/c plan. Will d/w Dr. Alonzo. Admission and Anticipated Discharge Date Admission Date: January 13, 2022 Subjective Patient seen on daily round this morning. Resting comfortably in bed, no complaints. Review of Systems Review of Systems: All systems reviewed and are unremarkable except as noted in HPI and below. Denies chills, fatigue, headache, nasal congestion, sore throat, cough, chest pain, shortness of breath, palpitations, orthopnea, PND, abdominal pain, n/v/d, constipation, dysuria, hematuria, frequency, back pain, joint pain or swelling, easy bruising or bleeding. Physical Exam Physical Exam: GENERAL: 71 yo Well-developed, well-nourished WM. NAD. LUNGS: Clear to auscultation bilaterally. No W/R/R. CARDIOVASCULAR: Regular rate and rhythm. ABDOMEN: Soft, non-tender and non-distended. BS normoactive x 4 quad. EXTREMITIES: No edema. Non-tender. Peripheral pulses +2/4. NEUROLOGIC: A&O x3. Nonfocal PSYCHIATRIC: Cooperative. Appropriate mood and affect. SKIN: L foot is dressed. Erythema is receding. Nontender. Results & Data Results & Data ([facility]) Vital Signs (Past 12 Hours) Vital Signs Temp Pulse Resp BP Pulse Ox O2 Del Method 01/18/22 11:34 36.8 C 81 16 154/77 H 97 Room Air 01/18/22 08:43 36.6 C 72 16 151/88 H 94 Room Air 01/18/22 08:08 Room Air 01/18/22 03:27 36.4 C L 77 16 138/69 94 Room Air Laboratory Results no labs drawn this am PG Care Time/CCT Total # of Minutes Spent Total Time Spent with Patient: Total time spent is greater than 50% in coordination of care (as documented) at patient's floor/unit and/or counseling patient: Coding Level of Care Code 17300 Subseq Hosp Care Lvl 2 Diagnoses Left foot infection L08.9 Acute on chronic renal insufficiency N28.9; N18.9 CHF (congestive heart failure) I50.9 Type 2 diabetes mellitus E11.9 Hypertension I10 Dyslipidemia E78.5
[2022-01-19] MEDS: AMPICILLIN/SULBACTAM SOD 3,000 MG in 0.9 % SODIUM CHLORIDE 100 ML IV SCH ×4 (01:55→20:18)
[2022-01-19] MEDS: FOLIC ACID 1 MG TAB PO SCH (08:48)
[2022-01-19] MEDS: CHOLECALCIFEROL 1,000 UNITS 25 MCG TAB PO SCH (08:48)
[2022-01-19] MEDS: INSULIN ASPART PER UNIT SC SCH ×4 (08:48→21:46)
[2022-01-19] MEDS: ENOXAPARIN INJ 30 MG/0.3 ML SYR SQ SCH (08:48)
[2022-01-19] MEDS: allopurinoL 100 MG TAB PO SCH (08:48)
[2022-01-19] MEDS: METOPROLOL SUCC 50MG EXT REL TAB PO SCH (08:48)
[2022-01-19] MEDS: ASPIRIN 81 MG ECTAB PO SCH (08:48)
[2022-01-19] MEDS: CYANOCOBALAMIN (B-12) 500 MCG TABLET PO SCH (08:48)
[2022-01-19] MEDS: DAPTOmycin 500 MG in SYRINGE 0 ML IV SCH (08:48)
[2022-01-19] MEDS: LANTUS PER UNIT CHARGE SQ SCH ×2 (08:49→21:46)
--- NOTE | 2022-01-19 11:36 | Hospitalist Progress Note ---
Date of Service January 19, 2022 Assessment & Plan (1) Left foot infection: Plan: - Empirically placed on Zosyn and Daptomycin - MRSA nares + isolation precautions in place - Wound culture: Group G Beta Strep & MRSA - Blood cultures pending-thus far NGTD - Evidence of bony erosion of first MTP on xray, obtain CT w/ contrast (results above) - concern for septic arthritis + OM - Pt is NOT a candidate for MRI d/t recent PPM insertion therefore underwent bone bx by Dr. Carty on 01/15 - Wound care consulted, appreciate assistance - L Arterial duplex-concern for HD significant stenosis, vascular consulted, no plans for anything urgent, o/p follow up - Antibiotics have been narrowed based on culture data from Zosyn/Dapto to Unasyn and resumed Dapto 01/16 (Dapto fell off on 01/15) - Osteomyelitis confirmed with growth of strep noted on bone bx - Will need minimum of 6w IV abx - picc line ordered, consent obtained-placed 01/19 - Consult ID for best abx choice, will consult case management for dc planning and to determine home iv abx coverage (2) Acute on chronic renal insufficiency: Plan: - Labs dating back to 12/2020, creatinine 1.5, baseline unknown - 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, could represent mild SHANNAN on CKD - Creat trended down to 1.59 with some IVF on 01/14 - IVF were stopped d/t some concern for pulmonary edema on imaging - Creat bumped which is expected in light of IV contrast administration, will continue to monitor (3) CHF (congestive heart failure): Plan: - Mild pulmonary edema noted on imaging with elevated BNP of 909 - Echo done 01/14, LV function normal, EF 60-65%, mild LVH - Stopped IVF 01/14 - On room air, not currently short of breath - No clinical evidence of acute HF exacerbation - Continue Metoprolol Succinate and ASA (4) Type 2 diabetes mellitus: Plan: - Lantus 10u at HS and 20u daily with log 8u AC (home regimen) - pharmacy has been consulted for glycemic management - a1c 7.3% (5) Hypertension: Plan: - BP well controlled, continue Toprol XL (6) Dyslipidemia: Plan: - Does not take any statins according to home med list Plan Interventions as outlined above. CM/ID consult to work on d/c plan. Will d/w Dr. Lamas. Admission and Anticipated Discharge Date Admission Date: January 13, 2022 Subjective Patient seen on rounds this morning. He remains hospitalized with LLE cellulitis and osteomyelitis. He is waiting for an ID consult to determine antibiotic regimen. He otherwise has no complaints. Pain in foot is adequately controlled. No fever/chills. Review of Systems Review of Systems: All systems reviewed and are unremarkable except as noted in HPI and below. Denies chills, fatigue, headache, nasal congestion, sore throat, cough, chest pain, shortness of breath, palpitations, orthopnea, PND, abdominal pain, n/v/d, constipation, dysuria, hematuria, frequency, back pain, joint pain or swelling, easy bruising or bleeding. Physical Exam Physical Exam: GENERAL: 71 yo Well-developed, well-nourished WM. NAD. LUNGS: Clear to auscultation bilaterally. No W/R/R. CARDIOVASCULAR: Regular rate and rhythm. ABDOMEN: Soft, non-tender and non-distended. BS normoactive x 4 quad. EXTREMITIES: No edema. Non-tender. Peripheral pulses +2/4. NEUROLOGIC: A&O x3. Nonfocal PSYCHIATRIC: Cooperative. Appropriate mood and affect. SKIN: L foot is dressed. Erythema is receding. Nontender. Results & Data Results & Data ([facility]) Vital Signs (Past 12 Hours) Vital Signs Temp Pulse Resp BP Pulse Ox O2 Del Method 01/19/22 07:37 36.8 C 91 H 16 134/75 97 Room Air PG Care Time/CCT Total # of Minutes Spent Total Time Spent with Patient: Total time spent is greater than 50% in coordination of care (as documented) at patient's floor/unit and/or counseling patient: Coding Level of Care Code 28368 Subseq Hosp Care Lvl 2 Diagnoses Left foot infection L08.9 Acute on chronic renal insufficiency N28.9; N18.9 CHF (congestive heart failure) I50.9 Type 2 diabetes mellitus E11.9 Hypertension I10 Dyslipidemia E78.5
--- NOTE | 2022-01-19 12:55 | Pharmacy Report ---
Pharmacy Glycemic Short Note 2 - Date of Service January 19, 2022 - Glycemic Short BSG Results (Last 24 hours): 01/18/22 01/18/22 01/19/22 16:47 20:02 08:16 POC Glucose 156 H 196 H 153 H 01/19/22 12:11 POC Glucose 253 H OUTPATIENT ANTIDIABETIC REGIMEN: * Lantus 20 units SQ qAM, 10 units SQ qPM * Novolog 8 units SQ BID with meals * HbA1c: 7.3% (01/14/22) ASSESSMENT: * Basal insulin was reduced over the weekend for fasting BSG less than goal. Current dose appears to be appropriate. If fasting BSG continues to trend up, will consider increasing Lantus again. * Novolog parameters adjusted slightly this morning to provide additional carb coverage. * Will continue to monitor and adjust as indicated. PLAN FOR INPATIENT GLYCEMIC CONTROL: * Basal insulin * Lantus 8 units SQ BID (give 5 units if BSG is less than 110mg/dL) * Bolus insulin * NovoLog per scale ACHS or Q6hrs while NPO * Goal Range: Low 110 mg/dL - High 140 mg/dL * Correction Factor: 30 mg/dL/unit * Nutritional / Prandial insulin per carb ratio of 1 unit per 7 grams CHO consumed
[2022-01-20] MEDS: AMPICILLIN/SULBACTAM SOD 3,000 MG in 0.9 % SODIUM CHLORIDE 100 ML IV SCH ×4 (01:59→20:44)
[2022-01-20 06:29] LABS: Basophils # (auto) 0.03 K/uL (0-0.2); Basophils % (auto) 0.4 %; Eosinophils # (auto) 0.35 K/uL (0-0.50); Eosinophils % (auto) 4.3 %; Hematocrit (blood only) 32.8 % (40.1-51.0); Hemoglobin 10.6 g/dl (14.0-18.0); Immature Granulocytes # (auto) 0.03 K/uL (0.00-0.02); Immature Granulocytes % (auto) 0.4 %; Lymphocytes # (auto) 0.91 K/uL (1.2-3.4); Lymphocytes % (auto) 11.2 %; Mean Corpuscular Hemoglobin 28.3 pg (25.0-34.0); Mean Corpuscular Hgb Conc 32.3 g/dL (32.0-36.0); Mean Corpuscular Volume 87.7 fL (80.0-100.0); Mean Platelet Volume 9.8 fL (9.4-12.4); Monocytes # (auto) 0.67 K/uL (0.24-0.82); Monocytes % (auto) 8.3 %; Neutrophils # (auto) 6.11 K/uL (1.4-6.5); Neutrophils % (auto) 75.4 %; Platelet Count 391 K/uL (130-400); RDW Coefficient of Variation 13.5 % (11.5-14.5); RDW Standard Deviation 43.5 fL (36.4-46.3); Red Blood Count 3.74 M/uL (4.63-6.08)
[2022-01-20 06:49] LABS: BUN Creatinine Ratio 15.9 (10-20); Calcium 8.6 mg/dl (8.5-10.1); Creatinine Clr Calc Pharmacy 46.7 ml/min; Est GFR (African American) 49.9 ml/min; Est GFR (Non-African American) 43.1 ml/min; Magnesium 2.1 mg/dl (1.7-2.4); Potassium 4.3 mmol/L (3.5-5.1)
[2022-01-20] MEDS: LANTUS PER UNIT CHARGE SQ SCH ×2 (08:44→20:50)
[2022-01-20] MEDS: INSULIN ASPART PER UNIT SC SCH ×4 (08:44→20:50)
[2022-01-20] MEDS: CHOLECALCIFEROL 1,000 UNITS 25 MCG TAB PO SCH (08:46)
[2022-01-20] MEDS: allopurinoL 100 MG TAB PO SCH (08:47)
[2022-01-20] MEDS: METOPROLOL SUCC 50MG EXT REL TAB PO SCH (08:47)
[2022-01-20] MEDS: FOLIC ACID 1 MG TAB PO SCH (08:47)
[2022-01-20] MEDS: CYANOCOBALAMIN (B-12) 500 MCG TABLET PO SCH (08:47)
[2022-01-20] MEDS: ENOXAPARIN INJ 30 MG/0.3 ML SYR SQ SCH (08:48)
[2022-01-20] MEDS: ASPIRIN 81 MG ECTAB PO SCH (08:48)
[2022-01-20] MEDS: DAPTOmycin 500 MG in SYRINGE 0 ML IV SCH (08:52)
--- NOTE | 2022-01-20 13:39 | Hospitalist Progress Note ---
Date of Service January 20, 2022 Assessment & Plan (1) Left foot infection: Plan: - Empirically placed on Zosyn and Daptomycin - MRSA nares + isolation precautions in place - Wound culture: Group G Beta Strep & MRSA - Blood cultures pending-thus far NGTD - Evidence of bony erosion of first MTP on xray, obtain CT w/ contrast (results above) - concern for septic arthritis + OM - Pt is NOT a candidate for MRI d/t recent PPM insertion therefore underwent bone bx by Dr. Carty on 01/15 - Wound care consulted, appreciate assistance - L Arterial duplex-concern for HD significant stenosis, vascular consulted, no plans for anything urgent, o/p follow up - Antibiotics have been narrowed based on culture data from Zosyn/Dapto to Unasyn and resumed Dapto 01/16 (Dapto fell off on 01/15) - Osteomyelitis confirmed with growth of strep noted on bone bx - Will need minimum of 6w IV abx - picc line ordered, consent obtained-placed 01/19 - ID consult appreciated, will need 2 weeks of Dapto and 42 days of Ampicillin from date of debridement - CM on consult to assist in dc planning, scripts provided - will also need weekly cbc, bmp, and cpk while on treatment (2) Acute on chronic renal insufficiency: Plan: - Labs dating back to 12/2020, creatinine 1.5, baseline unknown - 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 1.70 on admit, could represent mild SHANNAN on CKD - Creat trended down to 1.59 with some IVF on 01/14 - IVF were stopped d/t some concern for pulmonary edema on imaging - Creat bumped following IV contrast but has returned to baseline, stable (3) CHF (congestive heart failure): Plan: - Mild pulmonary edema noted on imaging with elevated BNP of 909 - Echo done 01/14, LV function normal, EF 60-65%, mild LVH - Stopped IVF 01/14 - On room air, not currently short of breath - No clinical evidence of acute HF exacerbation - Continue Metoprolol Succinate and ASA (4) Type 2 diabetes mellitus: Plan: - Lantus 10u at HS and 20u daily with log 8u AC (home regimen) - pharmacy has been consulted for glycemic management - a1c 7.3% (5) Hypertension: Plan: - BP well controlled, continue Toprol XL (6) Dyslipidemia: Plan: - Does not take any statins according to home med list Plan Interventions as above. He is ready to be discharged once home IV abx are arranged, [facility], scripts provided. Will d/w Dr. Lamas. Admission and Anticipated Discharge Date Admission Date: January 13, 2022 Subjective Patient seen on rounds this morning. He remains hospitalized with LLE cellulitis and osteomyelitis. He has been seen consult today by ID who is recommending Daptomycin x 2 weeks from debridement date and Ampicillin x 6 weeks from de bridement date. Pt has no complaints, pain is adequately controlled. No fever or chills. Review of Systems Review of Systems: All systems reviewed and are unremarkable except as noted in HPI and below. Denies chills, fatigue, headache, nasal congestion, sore throat, cough, chest pain, shortness of breath, palpitations, orthopnea, PND, abdominal pain, n/v/d, constipation, dysuria, hematuria, frequency, back pain, joint pain or swelling, easy bruising or bleeding. Physical Exam Physical Exam: GENERAL: 71 yo Well-developed, well-nourished WM. NAD. LUNGS: Clear to auscultation bilaterally. No W/R/R. CARDIOVASCULAR: Regular rate and rhythm. ABDOMEN: Soft, non-tender and non-distended. BS normoactive x 4 quad. EXTREMITIES: No edema. Non-tender. Peripheral pulses +2/4. NEUROLOGIC: A&O x3. Nonfocal PSYCHIATRIC: Cooperative. Appropriate mood and affect. SKIN: L foot is dressed. Erythema is receding. Nontender. Results & Data Results & Data ([facility]) Vital Signs (Past 12 Hours) Vital Signs Temp Pulse Resp BP Pulse Ox O2 Del Method 01/20/22 08:11 36.7 C 86 19 144/83 H 93 Room Air Laboratory Results 01/20/22 05:48 01/20/22 05:48 PG Care Time/CCT Total # of Minutes Spent Total Time Spent with Patient: Total time spent is greater than 50% in coordination of care (as documented) at patient's floor/unit and/or counseling patient: Coding Level of Care Code 46899 Subseq Hosp Care Lvl 2 Diagnoses Left foot infection L08.9 Acute on chronic renal insufficiency N28.9; N18.9 CHF (congestive heart failure) I50.9 Type 2 diabetes mellitus E11.9 Hypertension I10 Dyslipidemia E78.5
[2022-01-21] MEDS: AMPICILLIN/SULBACTAM SOD 3,000 MG in 0.9 % SODIUM CHLORIDE 100 ML IV SCH ×3 (02:33→14:45)
[2022-01-21] MEDS: INSULIN ASPART PER UNIT SC SCH ×4 (09:58→21:43)
[2022-01-21] MEDS: LANTUS PER UNIT CHARGE SQ SCH ×2 (10:00→21:44)
[2022-01-21] MEDS: DAPTOmycin 500 MG in SYRINGE 0 ML IV SCH (10:07)
[2022-01-21] MEDS: CYANOCOBALAMIN (B-12) 500 MCG TABLET PO SCH (10:13)
[2022-01-21] MEDS: FOLIC ACID 1 MG TAB PO SCH (10:13)
[2022-01-21] MEDS: CHOLECALCIFEROL 1,000 UNITS 25 MCG TAB PO SCH (10:13)
[2022-01-21] MEDS: allopurinoL 100 MG TAB PO SCH (10:13)
[2022-01-21] MEDS: METOPROLOL SUCC 50MG EXT REL TAB PO SCH (10:13)
[2022-01-21] MEDS: ENOXAPARIN INJ 30 MG/0.3 ML SYR SQ SCH (10:14)
[2022-01-21] MEDS: ASPIRIN 81 MG ECTAB PO SCH (10:15)
--- NOTE | 2022-01-21 19:23 | Hospitalist Progress Note ---
Date of Service January 21, 2022 Assessment & Plan (1) Left foot infection: Plan: With left 1st MTP synovitis and OM with surrounding cellulitis - Empirically placed on Zosyn and Daptomycin - MRSA nares + isolation precautions in place - Wound culture: Group G Beta Strep & MRSA - Blood cultures pending-thus far NGTD - Evidence of bony erosion of first MTP on xray, obtained CT w/ contrast - concern for septic arthritis + OM - Pt is NOT a candidate for MRI d/t recent PPM insertion therefore underwent bone bx by Dr. Carty on 01/15--> bone bx culture with Group G Strep only - Wound care consulted, appreciate assistance - L Arterial duplex-concern for HD significant stenosis, vascular consulted, no plans for anything urgent, o/p follow up if wound not healing - Antibiotics have been narrowed based on culture data from Zosyn/Dapto to Unsayn and Dapto --> ID recommends further narrowing to Ampicillin alone and Dapto--> did this today - Osteomyelitis and pseudogout seen on path of bone bx, and with Group G Strep - Will need 6w IV Ampicillin and 2 weeks IV Dapto from time of bone biopsy - picc line-placed 01/19 - ID consult appreciated - CM on consult to assist in dc planning,IV abx arranged to start on 01/22 and can dc to home then - will also need weekly cbc, bmp, and cpk while on treatment-will check CBC, CMP,CRP, and baseline CPK in the AM (2) Acute on chronic renal insufficiency: Plan: - Labs dating back to 12/2020, creatinine 1.5, baseline unknown - 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, could represent mild SHANNAN on CKD - Creat trended down to 1.59 with some IVF on 01/14 - IVF were stopped d/t some concern for pulmonary edema on imaging - Creat bumped following IV contrast but has returned to baseline, stable (3) CHF (congestive heart failure): Plan: - Mild pulmonary edema noted on imaging with elevated BNP of 909 - Echo done 01/14, LV function normal, EF 60-65%, mild LVH - Stopped IVF 01/14 - On room air, not currently short of breath - No clinical evidence of acute HF exacerbation - Continue Metoprolol Succinate and ASA (4) Type 2 diabetes mellitus: Plan: - Lantus 10u at HS and 20u daily with log 8u AC (home regimen) - pharmacy has been consulted for glycemic management - a1c 7.3% (5) Hypertension: Plan: - BP well controlled, continue Toprol XL (6) Dyslipidemia: Plan: - Does not take any statins according to home med list (7) Aortic valve replaced: Plan: noted, no acute issues Plan DVT proph-Lovenox Dispo-continue dstay until home IV abx set up for tomorrow, dc tomrorow after Justina comes to hospital to set up his continuous AMpicillin Admission and Anticipated Discharge Date Admission Date: January 13, 2022 Subjective Pt reports feeling very well. Denies N/V, CP, SOB, abd pains, diarrhea. No pain in foot. Has been ambulating in the room. Is anxious for discharge Review of Systems Review of Systems: All systems reviewed & are unremarkable except as noted in HPI & below Physical Exam Constitutional: WD/WN, vitals as above Eyes: + anicteric sclerae ENMT: external ear and nose normal, oropharynx normal Neck: trachea midline, no thyromegaly Respiratory: normal respiratory effort, lungs clear to auscultation Cardiovascular: RRR, no murmur, no edema Chest (Breasts): Chest: normal inspection of chest Gastrointestinal (Abdomen): normal bowel sounds, soft, nontender, no hepatosplenomegaly Musculoskeletal: Extremities: + extremities abnormal to inspection (left leg mild chronic edema and erythema), no cyanosis and no clubbing Skin: + lesion (left 1st MTP joint ulceration,surrounding erythema) Neurologic: moves all extremities and awake; no focal motor deficits Psychiatric: A+Ox3, euthymic affect Results & Data Results & Data ([facility]) Vital Signs (Past 12 Hours) Vital Signs Temp Pulse Resp BP Pulse Ox O2 Del Method 01/21/22 15:15 36.8 C 78 17 127/78 96 Room Air 01/21/22 07:40 36.5 C 91 H 18 133/75 96 Room Air Laboratory Results 01/21/22 01/21/22 01/21/22 Range/Units 16:42 11:52 07:44 POC Glucose 123 H 255 H 141 H (70-99) mg/dl 01/20/22 Range/Units 20:30 POC Glucose 160 H (70-99) mg/dl PG Care Time/CCT Total # of Minutes Spent Total Time Spent with Patient: Total time spent is greater than 50% in coordination of care (as documented) at patient's floor/unit and/or counseling patient: Coding Level of Care Code 48618 Subseq Hosp Care Lvl 2 Diagnoses Left foot infection L08.9 Acute on chronic renal insufficiency N28.9; N18.9 CHF (congestive heart failure) I50.9 Type 2 diabetes mellitus E11.9 Hypertension I10 Dyslipidemia E78.5 Aortic valve replaced Z95.2
[2022-01-21] MEDS ORDERED: AMPICILLIN 2,000 MG in SODIUM CHLOR 0.9% AD-VAN 100 ML IV SCH (20:00)
[2022-01-21] MEDS: AMPICILLIN 2,000 MG in SODIUM CHLOR 0.9% AD-VAN 100 ML IV SCH (21:42)
[2022-01-22] MEDS: AMPICILLIN 2,000 MG in SODIUM CHLOR 0.9% AD-VAN 100 ML IV SCH ×2 (03:57→10:15)
[2022-01-22 06:56] LABS: Basophils # (auto) 0.04 K/uL (0-0.2); Basophils % (auto) 0.4 %; Eosinophils # (auto) 0.24 K/uL (0-0.50); Eosinophils % (auto) 2.4 %; Hematocrit (blood only) 33.5 % (40.1-51.0); Hemoglobin 11.1 g/dl (14.0-18.0); Immature Granulocytes # (auto) 0.06 K/uL (0.00-0.02); Immature Granulocytes % (auto) 0.6 %; Lymphocytes # (auto) 0.94 K/uL (1.2-3.4); Lymphocytes % (auto) 9.5 %; Mean Corpuscular Hemoglobin 28.8 pg (25.0-34.0); Mean Corpuscular Hgb Conc 33.1 g/dL (32.0-36.0); Mean Corpuscular Volume 86.8 fL (80.0-100.0); Mean Platelet Volume 9.8 fL (9.4-12.4); Monocytes # (auto) 0.95 K/uL (0.24-0.82); Monocytes % (auto) 9.6 %; Neutrophils # (auto) 7.68 K/uL (1.4-6.5); Neutrophils % (auto) 77.5 %; Platelet Count 395 K/uL (130-400); RDW Coefficient of Variation 14.1 % (11.5-14.5); Red Blood Count 3.86 M/uL (4.63-6.08); White Blood Count 9.91 K/ul (4.8-10.8)
[2022-01-22 07:23] LABS: Albumin Globulin Ratio 0.8 (0.9-2); BUN Creatinine Ratio 17.8 (10-20); Bilirubin,Total 0.7 mg/dl (0.2-1.0); Calcium 8.6 mg/dl (8.5-10.1); Creatinine Clr Calc Pharmacy 50.2 ml/min; Est GFR (African American) 54.5 ml/min; Globulin 3.8 gm/dl (2.5-4.0); Potassium 4.6 mmol/L (3.5-5.1); Total Protein 6.8 gm/dl (6.0-8.3)
[2022-01-22] MEDS: INSULIN ASPART PER UNIT SC SCH (09:07)
[2022-01-22] MEDS: FOLIC ACID 1 MG TAB PO SCH (09:14)
[2022-01-22] MEDS: CYANOCOBALAMIN (B-12) 500 MCG TABLET PO SCH (09:14)
[2022-01-22] MEDS: ASPIRIN 81 MG ECTAB PO SCH (09:14)
[2022-01-22] MEDS: allopurinoL 100 MG TAB PO SCH (09:14)
[2022-01-22] MEDS: DAPTOmycin 500 MG in SYRINGE 0 ML IV SCH (09:14)
[2022-01-22] MEDS: METOPROLOL SUCC 50MG EXT REL TAB PO SCH (09:14)
[2022-01-22] MEDS: CHOLECALCIFEROL 1,000 UNITS 25 MCG TAB PO SCH (09:14)
[2022-01-22] MEDS: LANTUS PER UNIT CHARGE SQ SCH (09:21)
[2022-01-22] MEDS: ENOXAPARIN INJ 30 MG/0.3 ML SYR SQ SCH (09:21)
--- NOTE | 2022-01-22 13:14 | Discharge Summary ---
Date of Service January 22, 2022 Admission HPI Per Admitting Provider 71 yo male with PMHx DM2 insulin dependent, CKD, CAD s/p CABG and pacemaker, aortic valve replacement, HTN, HLD, Gout, B12 deficiency, hard of hearing, obesity presented with an wound on L foot near base of big toe. The wound first appeared 3 to 4 weeks ago soon after getting new shoes. Initially had pain and erythema around the wound site which progressively got worse. The redness spread to his left lower extremity and also started developing pus from the wound. With the help of his he tried managing the wound at home without success. Was not on any antibiotics prior to his ED visit today. Over the last few days he has also been experiencing some fevers and chills. Has also been experiencing some shortness of breath however unsure if related as he does have a history of CHF. Denies chest pain, abdominal pain, nausea, vomiting, dizziness, heart palpitations, constipation, diarrhea. He states he is compliant with his home meds and insulin regimen. Patient also has a longstanding heart history as stated above and follows with the [facility]. He was last seen by his ambulatory nurse earlier this spring and states his heart was doing well. His cardiology team monitors his pa brianna and did call him today about scheduling an appointment for follow-up due to an unknown finding on interrogation. He typically drinks 3-4 beers a night but denies alcohol use over the last few weeks ever since his foot wound. He has a poor diet at home and does acknowledge using a decent amount of table salt on his foods. Not on his home diuretics. Principal Diagnosis Left foot osteomyelitis, diabetic foot ulcer Discharge Exam Constitutional WD/WN, vitals as above Eyes + anicteric sclerae Neck trachea midline, no thyromegaly Respiratory normal respiratory effort, lungs clear to auscultation Cardiovascular RRR, no murmur, no edema Chest (Breasts) Chest: normal inspection of chest Gastrointestinal (Abdomen) normal bowel sounds, soft, nontender, no hepatosplenomegaly Musculoskeletal Extremities: + extremities abnormal to inspection (left leg mild chronic edema and erythema), no cyanosis and no clubbing Skin + lesion (left 1st MTP joint ulceration,surrounding erythema) Neurologic moves all extremities and awake; no focal motor deficits Psychiatric A+Ox3, euthymic affect Discharge Data Allergies Allergy/AdvReac Type Severity Reaction Status Date / Time No Known Drug Allergies Allergy Verified 12/27/20 12:10 Consultations 01/13/22 19:18 ED Decision to Admit Stat 01/14/22 16:31 Consult Podiatry Routine 01/15/22 12:43 Consult Vascular Surgery Routine 01/18/22 08:53 Consult Infectious Diseases Routine Procedures Performed Operation Date: 01/15/22 11:40 Actual Procedures p Debridement of wound left foot; Bone biopsy left 1st metatarsal(Left) - Ramon Carty DPM, MS Ordered Studies 01/13/22 16:14 US venous doppler LE LT Stat 01/14/22 15:31 CT foot LT w con Urgent 01/15/22 US arterial duplex LE LT Routine Hospital Course (1) Left foot infection: With left 1st MTP synovitis and OM with surrounding cellulitis - Empirically placed on Zosyn and Daptomycin - MRSA nares + isolation precautions in place - Wound culture: Group G Beta Strep & MRSA - Blood cultures -remained NGTD at the time of discharge - Evidence of bony erosion of first MTP on xray, obtained CT w/ contrast - concern for septic arthritis + OM - Pt is NOT a candidate for MRI d/t recent PPM insertion therefore underwent bone bx by Dr. Carty on 01/15--> bone bx culture with Group G Strep only - Wound care consulted, appreciate assistance - L Arterial duplex-concern for HD significant stenosis, vascular consulted, no plans for anything urgent, o/p follow up if wound not healing - Antibiotics have been narrowed based on culture data from Zosyn/Dapto to Unsayn and Dapto --> ID recommends further narrowing to Ampicillin alone and Dapto--> continue daptomycin through 01/29 and with the ampicillin through 02/26- arrangements for home IV antibiotics have been made - Osteomyelitis and pseudogout seen on path of bone bx, and with Group G Strep - - picc line-placed 01/19 --This is to be arranged by Jose ID -Needs once weekly cbc, bmp, and cpk while on treatment (2) Acute on chronic renal insufficiency: - Labs dating back to 12/2020, creatinine 1.5, baseline unknown - VICE PRESIDENT FIXED INCOME 1.70 on admit, could represent mild SHANNAN on CKD-did receive some IV fluids early on which were then stopped due to concern for pulmonary edema on imaging - Creat trended down to likely baseline at 1.4 on the day of discharge Following once weekly labs on IV antibiotics (3) CHF (congestive heart failure): - Mild pulmonary edema noted on imaging with elevated BNP of 909 - Echo done 01/14, LV function normal, EF 60-65%, mild LVH - Stopped IVF 01/14 - On room air, not currently short of breath and doing very well - No clinical evidence of acute HF exacerbation - Continue Metoprolol Succinate and ASA (4) Type 2 diabetes mellitus: Pharmacy managed basal bolus insulin Continue home regimen on discharge - a1c 7.3% (5) Hypertension: - BP well controlled, continue Toprol XL (6) Dyslipidemia: - Does not take any statins according to home med list (7) Aortic valve replaced: noted, no acute issues Plan DVT proph-Lovenox Dispo-stable for discharge to home Total Time Total Time Spent Total Time Spent (In Minutes): 40 minutes Discharge Plan Discharge Items Patient Disposition: Home - Home Health Services Reason For Visit: LEFT WOUND ULCER Discharge Diagnosis: Left foot ulcer,osteomyelitis, cellulitis Activity: As commented below Bathing: No limitations Bathing Comment: Except no soaking in a tub/pool Exercise/Sports: Gradually increase as tolerated Exercise Comment: with post-op shoe in place Weightbearing: Full weightbearing Non-emergency contact: Primary Care Provider and Surgeon Call non-emergency contact if: you have any medication questions, your symptoms worsen, your pain is not controlled, you have a fever, your temperature is above 101, your wound has increased redness, your wound has increased drainage and your wound pain has increased Follow-up/Referrals: Tomasa Harrison PA-C [Primary Care Provider] - (Follow up in 1-2 weeks) Ramon Carty DPM, MS [Physician] - (Please follow up in 1 week) Diet: Carb Consistent or DM2 and Heart Healthy Addtl Attending Provider Instructions: Continue dressing changes daily or as needed for soaked bandage. Follow up with the Surgeon in 1 week. Continue on the IV antibiotics with both Daptomycin once daily through last day 01/29/22 and with the continuous Ampicillin infusion daily through 02/26/22. You will need labs drawn once weekly to check CBC, CMP, and CPK-home health will do this. Pending Studies at Discharge: No Stand-Alone Forms: [employer], Smoking Cessation Medications and DC Order Prescriptions: Continued cholecalciferol (vitamin D3) 25 mcg (1,000 unit) tablet 50 mcg PO DAILY allopurinol 100 mg tablet 100 mg PO DAILY aspirin [Aspirin Low-Strength] 81 mg Tablet,Delayed Release (Dr/Ec) 81 mg PO DAILY folic acid 1 mg Tablet 1 mg PO DAILY metoprolol succinate 50 mg tablet extended release 24 hr 50 mg PO DAILY cyanocobalamin (vitamin B-12) 500 mcg Tablet 500 mcg PO DAILY insulin aspart U-100 [Novolog Flexpen U-100 Insulin] 100 unit/mL (3 mL) insulin pen 8 unit SUBCUT AC Rx Instructions: inject within 10 minutes before meals insulin glargine 100 unit/mL (3 mL) Insulin Pen See Rx Instructions .ROUTE .COMPLEX Rx Instructions: inject 20 unit subcutaneously every morning, and inject 10 units every evening triamcinolone acetonide 0.025 % Cream 1 applic TOPICAL DAILY Rx Instructions: left lower leg for stasis dermatitis. do not put in wounds PreserVision AREDS-2 250-90-40-1 mg Capsule 1 tab PO BID Discharge Orders: Discharge Order (Routine); Ordered 01/22/22 Ordered By: Sena Hurtado Admission Data Admit Date/Time: 01/13/22 21:28 Attending Provider: Sena Hurtado Admit Provider: Dillan Mcgee Primary Care Provider: Tomasa Harrison Other Providers: [facility] ; Alberto Wolfe ; Ramon Carty ; Mundo Parker ; Tacho Rolle ; Timothy Jain ; Gentry Tirado I. ; Bob Espana II ; Sandra Uriostegui ; Scottie Holman ; Juan Cowan ; Stevenson Blue Coding Level of Care Code D/C DAY MANAGEMENT >30 MINS Diagnoses Left foot infection L08.9 Acute on chronic renal insufficiency N28.9; N18.9 CHF (congestive heart failure) I50.9 Type 2 diabetes mellitus E11.9 Hypertension I10 Dyslipidemia E78.5 Aortic valve replaced Z95.2
== END 2022-01-22 14:20 | disposition home health service (06) | DRG 629 ==
LOC: ED 16:00 → 4W 21:28 → SUATTDRO 21:28 → 4W 22:35 → 3E 01-18 23:28